=== PATIENT | male | born 1945 | race Caucasian/White ===

== ENCOUNTER → 2018-05-26 | Outpatient (CLI) | payer MEDICARE, BC, OTHER ==
--- NOTE | 2018-05-26 15:25 | XR ---
EXAM TYPE: LUMBAR SPINE X RAY SERIES COMPARISON: NONE HISTORY: Lower back pain TECHNIQUE: 3 views are submitted. FINDINGS: Alignment is anatomic. The pedicles are intact. The transverse processes are intact. There is no s pondylolysis or spondylolisthesis. Surgical clips in the right upper quadrant. Multilevel hypertroph ic and degenerative disc disease with facet arthropathy. Atherosclerotic change of the vasculature. IMPRESSION: 1. Multilevel degenerative disc disease and facet arthropathy consider MRI follow-up. Multilevel fora luther encroachment suspected.
== END | disposition home or self-care (01) ==
LOC: RADXRMAIN 14:32
PROVIDERS: ATTEND Nurse Practitioner Adult Health
DX: M51.36 Other intervertebral disc degeneration, lumbar region (principal); M46.96 Unspecified inflammatory spondylopathy, lumbar region
CPT/HCPCS: 72100

== ENCOUNTER → 2018-06-21 | Outpatient (CLI) | payer MEDICARE, BC, OTHER ==
--- NOTE | 2018-06-23 08:00 | MR ---
EXAMINATION TYPE: MR lumbar spine wo con DATE OF EXAM: 06/21/2018 COMPARISON: HISTORY: LBP, radiates down both legs to feet TECHNIQUE: Multiplanar, multisequence images of the lumbar spine were acquired. Lumbar vertebra have normal alignment. There is mild uniform narrowing of lumbar disc spaces. There i s small posterior disc bulging at all levels of the lumbar spine. There is developmentally small spin al canal. There is hypertrophic facet arthropathy. There is resultant moderately severe spinal stenos is at L4-5. There is mild lateral recess stenosis at L3-4 and L2-3. There is bilateral narrowing of t he neural foramina from L1 to L5 due to the disc space mild narrowing and facet arthropathy. There is no compression fracture. There is no lumbar paraspinal mass. I see no focal bone destruction. IMPRESSION: Multilevel spondylotic changes. Moderately severe L4-5 bony spinal stenosis. Mild relative stenosis s een at other levels as above. No fracture. Multilevel neural foraminal narrowing as above.
== END | disposition home or self-care (01) ==
LOC: RADMRIMAIN 17:48
PROVIDERS: ATTEND Nurse Practitioner Adult Health
DX: M99.73 Connective tissue and disc stenosis of intervertebral foramina of lumbar region (principal); M48.061 Spinal stenosis, lumbar region without neurogenic claudication; M47.816 Spondylosis without myelopathy or radiculopathy, lumbar region
CPT/HCPCS: 72148

== ENCOUNTER 2021-05-11 08:30 | Emergency (ER) | payer MEDICARE, BC, OTHER ==
[2021-05-11 08:37] VITALS: BP 195/74; PULSE 71; RESP 18; TEMP 98.4
[2021-05-11] MEDS ORDERED: MORPHINE SULFATE 4 MG/ML SYRINGE IM STA (09:07)
--- NOTE | 2021-05-11 09:12 | ED ---
ENT HPI - General Chief complaint: Dental/Oral Stated complaint: Tooth pain Time Seen by Provider: 05/11/21 08:40 Source: patient, RN notes reviewed Mode of arrival: ambulatory Limitations: no limitations - History of Present Illness Initial comments: Patient is a healthy 76-year-old male presenting to the emergency Department with complaints of right lower dental pain. Patient states he had a bad tooth, had the tooth removed by his dentist on Wednesday, 5 days ago. Over the past couple of days his pain has been increasing. He has only been taking Tylenol, he finally called his dentist and received a prescription for Georgetown. He took 2 doses yesterday, it did not seem to touch the pain. He denies any fevers or chills, no facial swelling, no nausea or vomiting. He was told to call his dentist first thing Wednesday morning for another appointment. Patient has no further complaints today. - Related Data Allergies Allergy/AdvReac Type Severity Reaction Status Date / Time No Known Allergies Allergy Verified 05/11/21 08:37 Review of Systems ROS Statement: Those systems with pertinent positive or pertinent negative responses have been documented in the HPI. ROS Other: All systems not noted in ROS Statement are negative. Past Medical History Past Medical History: Diabetes Mellitus, GERD/Reflux, Hyperlipidemia, Hypertension, Sleep Apnea/CPAP/BIPAP Additional Past Medical History / Comment(s): low back pain, leg cramps/restless legs/ carpal tunnel History of Any Multi-Drug Resistant Organisms: None Reported Past Surgical History: Tonsillectomy Past Anesthesia/Blood Transfusion Reactions: No Reported Reaction Past Psychological History: No Psychological Hx Reported Smoking Status: Never smoker Past Alcohol Use History: Occasional Past Drug Use History: None Reported General Exam - General Exam Comments Initial Comments: GENERAL: Patient is well-developed and well-nourished. Patient is nontoxic and in no acute distress. HEAD: Atraumatic, normocephalic. EYES: Pupils equal round and reactive to light, extraocular movements intact, sclera anicteric, conjunctiva are normal. Eyelids were unremarkable. ENT: TMs normal, nares patent, oropharynx clear without exudates. Moist mucous membranes. Tooth #32 was removed, mild erythema, appears to be dry socket. It is no facial swelling. NECK: Normal range of motion, supple without lymphadenopathy or JVD. LUNGS: Unlabored respirations. Breath sounds clear to auscultation bilaterally and equal. No wheezes rales or rhonchi. HEART: Regular rate and rhythm without murmurs, rubs or gallops. NEUROLOGICAL: Patient is alert and oriented x 3. SKIN: Warm, Dry, normal turgor, no rashes or lesions noted. Limitations: no limitations Course Vital Signs 05/11/21 08:35 Temperature 98.4 F Pulse Rate 71 Respiratory 18 Rate Blood Pressure 195/74 O2 Sat by Pulse 98 Oximetry Medical Decision Making - Medical Decision Making Patient is a 76-year-old male presenting with right lower tooth pain for the past 5 days. He had tooth removed by his dentist, had worsening pain over the past couple days, he did call his dentist, prescribed Georgetown yesterday. Patient had trouble sleeping last night secondary to pain. Exam reveals most likely dry socket. I will give him a dose of morphine here in the ER. The recommended anti-inflammatories along with his Georgetown's, can alternate between the 2. I recommended heat or ice packs to the outside of the jaw. He can follow up with his dentist tomorrow. He is agreeable to this plan of care and he is stable for discharge. Disposition Clinical Impression: Dry tooth socket, Toothache Disposition: HOME SELF-CARE Condition: Stable Instructions (If sedation given, give patient instructions): Toothache (ED) Additional Instructions: Please return to the Emergency Department if symptoms worsen or any other concerns. Recommend continuing with Georgetown, alternate between ibuprofen or Aleve. Trial of heat and/or ice to the outside of the jaw as well. Topical Orajel may also help. Follow-up with your dentist tomorrow. Is patient prescribed a controlled substance at d/c from ED?: No Referrals: Zuleika Schulte, AARON [Primary Care Provider] - 1-2 days Time of Disposition: 09:12
== END 2021-05-11 09:25 | disposition home or self-care (01) ==
LOC: EC 08:30
DX: M27.3 Alveolitis of jaws (principal); E11.9 Type 2 diabetes mellitus without complications; E78.5 Hyperlipidemia, unspecified; G25.81 Restless legs syndrome; G47.30 Sleep apnea, unspecified; I10 Essential (primary) hypertension; K21.9 Gastro-esophageal reflux disease without esophagitis
CPT/HCPCS: 99282; 96372; J2270

== ENCOUNTER → 2022-01-13 | Outpatient (CLI) | payer MEDICARE, BC, OTHER ==
--- NOTE | 2022-01-13 09:56 | XR ---
Limited right knee HISTORY: Right knee pain 2 views the right knee There is spurring and joint space loss at the patellofemoral joint with some increased suprapatellar density suggests joint effusion, joint space loss is also present within the medial compartment, vasc ular calcifications are identified incidentally. Bone mineralization and alignment are maintained. 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 Limited right knee.
== END | disposition home or self-care (01) ==
LOC: RADXRYALE 08:53
PROVIDERS: ATTEND Internal Medicine
DX: M25.561 Pain in right knee (principal); M25.461 Effusion, right knee

== ENCOUNTER → 2022-02-03 | Outpatient (CLI) | payer MEDICARE, BC, OTHER ==
[2022-02-03 18:44] LABS: Anion Gap 13.9 mmol/L (10.00-18.00); Carbon Dioxide 28.9 mmol/L (20.0-27.5); Potassium 4.3 mmol/L (3.5-5.5)
[2022-02-03 18:49] LABS: Basophils # (A) 0.05 X 10*3/uL (0.00-0.10); Basophils % (A) 1.1 %; Eosinophils # (A) 0.17 X 10*3/uL (0.04-0.35); Eosinophils % (A) 3.9 %; HCT 43.2 % (39.6-50.0); HGB 14.4 g/dL (13.0-17.0); Immature Grans, Automated 0.2 %; Lymphocytes # (A) 1.58 X 10*3/uL (0.90-5.00); Lymphocytes % (A) 35.8 %; MCH 30.2 pg (27.0-32.0); MCHC 33.3 g/dL (32.0-37.0); MCV 90.6 fL (80.0-97.0); Mean Platelet Volume 11.8 fL (9.5-12.2); Monocytes # (A) 0.36 X 10*3/uL (0.20-1.00); Monocytes % (A) 8.2 %; NRBC Per 100 WBC 0 /100 WBCS (0.0-0.0); Neutrophils # (A) 2.24 X 10*3/uL (1.80-7.70); Neutrophils % (A) 50.8 %; Platelet Count 147 X 10*3/uL (140-440); RBC 4.77 X 10*6/uL (4.40-5.60); RDW 13.6 % (11.5-14.5); WBC 4.41 X 10*3/uL (4.50-10.00)
== END | disposition home or self-care (01) ==
LOC: LABPAT 10:37
PROVIDERS: ATTEND Orthopaedic Surgery
DX: Z01.812 Encounter for preprocedural laboratory examination (principal); M23.91 Unspecified internal derangement of right knee
CPT/HCPCS: 80051; 85025; 93005

== ENCOUNTER 2022-03-25 10:16 | Day surgery (SDC) | payer MEDICARE, BC, OTHER ==
--- NOTE | 2022-03-25 01:53 | HP ---
HISTORY AND PHYSICAL DATE OF SURGERY: 03/25/2022 HISTORY OF PRESENT ILLNESS: Humphrey Sanchez is a 76-year-old patient seen with progressive right knee pain. We discussed options for treatment. The patient has elected to proceed with right knee arthroscopy. Consent regarding the procedure was obtained. Cardiac clearance was provided by Dr. Saez. PAST MEDICAL HISTORY: Hypertension, insulin-dependent diabetes, and hyperlipidemia. SURGICAL HISTORY: Carpal tunnel surgery and cholecystectomy. DAILY MEDICATIONS: Glipizide, losartan, metformin, metoprolol, NovoLog insulin, and omeprazole. ALLERGIES: None. SOCIAL HISTORY: He denies current tobacco use. PHYSICAL EVALUATION OF RIGHT KNEE: Range of motion is -2 to 100. Mild effusion. Tenderness to medial joint line. Positive medial Khang's. Ligaments stable. Hip rotation without pain. Distal neurovascular exam intact. RADIOGRAPHS: Radiographs of the right knee revealed moderate osteoarthritic changes. IMPRESSION: 1. Internal derangement of right knee with medial meniscal tear. 2. Hypertension. 3. Hyperlipidemia. 4. Insulin-dependent diabetes. PLAN: Right knee arthroscopy with partial medial meniscectomy and debridement. MMODL / IJN: [id number] /
[~2022-03-25 10:16] MED LIST: LACTATED RINGERS 1,000 ML IV SCH; LIDOCAINE 1% (10MG/ML) FOR IV START INTRADERMA PRN; ONDANSETRON 4 MG/2 ML VIAL IVP ONE
[2022-03-25 11:10] LABS: Glucose,Whole Blood 218 mg/dL (70-110)
[2022-03-25] MEDS ORDERED: INSULIN ASPART (NovoLOG) 100 UNIT/ML VIAL SQ ONE (11:17)
[2022-03-25] MEDS ORDERED: PROPOFOL 10 MG/ML 20 ML VIAL IV ONE (12:07)
[2022-03-25] MEDS ORDERED: fentaNYL (PF) 50 MCG/ML 2 ML AMP ONE (12:07)
[2022-03-25] MEDS ORDERED: SUCCINYLCHOLINE CHLORIDE 200 MG/10 ML VIAL IV ONE (12:07)
[2022-03-25] MEDS ORDERED: BUPIVACAIN-EPI 0.25%-1:200,000 30 ML VIAL INTRAARTIC ONE (12:14)
--- NOTE | 2022-03-25 13:04 | P.OP ---
Date of Procedure: 03/25/22 Preoperative Diagnosis: Internal derangement right knee Postoperative Diagnosis: 1. Tear medial and lateral meniscus right knee 2. Reactive synovitis medial, lateral and suprapatellar compartments right knee Procedure(s) Performed: 1. Arthroscopic partial medial and lateral meniscectomy right knee 2. Arthroscopic partial synovectomy medial, lateral and suprapatellar compartments right knee Anesthesia: GETA, local Surgeon: Desmond Alfaro Estimated Blood Loss (ml): 6 Pathology: none sent Condition: stable Disposition: PACU Indications for Procedure: 76-year-old patient seen with progressive right knee pain. After treatment options were discussed, he elected to proceed with arthroscopy. Operative Findings: See description of procedure Description of Procedure: Patient was taken to the operative suite. Patient underwent a general anesthetic by the department of anesthesia. Patient was given preoperative antibiotics. The right lower extremity was placed in a well-padded arthroscopic leg arce. The right leg was prepped and draped in the normal sterile orthopedic fashion. A lateral parapatellar and suprapatellar incision was made. Trochars were inserted. Arthroscopy was initiated. Suprapatellar pouch revealed diffuse thick reactive synovitis. The patellofemoral joint appeared to articulate congruently. There was grade 1 chondromalacia of the patellofemoral joint without significant tearing noted. The scope was guided into the medial gutter. No loose body or plica were identified. The scope was then guided into the medial compartment. A medial parapatellar incision was made. Trocar inserted followed by probe. There was a complex tear involving the posterior horn and midbody medial meniscus. There were grade 2/3 chondromalacia changes of the medial femoral condyle and tibial plateau without significant osteochondral tears being present. There was some thick reactive synovitis anteriorly. I performed a partial medial meniscectomy getting down to stable meniscal tissue. I performed a partial synovectomy decompressing the thick reactive synovitis. The residual meniscus was stable. There was good decompression of the synovitis. Scope and probe were then guided into the intercondylar notch. Cruciates were identified, probed and found to be stable. The scope and probe were then guided into lateral compartment. There was a radial tear mid body lateral meniscus. There were grade 1/2 chondromalacia changes of lateral compartment. There was thick reactive synovitis anteriorly. I performed a partial lateral meniscectomy getting down to stable meniscal tissue. I performed a partial synovectomy decompressing the reactive synovitis. The residual meniscus was stable. There was good decompression of the synovitis. The scope was in guided back into the suprapatellar compartment. I introduced a motorized shaver into the super patellar compartment. I debrided some piecemeal fragments of meniscus that I encountered. I performed a partial synovectomy. The shaver was removed. There was good decompression of synovitis. I took one more look around the entire knee, no residual debris. Instruments were now removed from the joint. The joint was infiltrated with .25% Marcaine. Steri-Strips were applied to the portal sites. Sterile dressings were applied. The patient was placed into a TRAE hose. No tourniquet was utilized. The patient was awakened, transferred to a bed and taken to recovery stable satisfactory condition.
[2022-03-25 13:09] VITALS: TEMP 96.9
[2022-03-25] MEDS: HYDROmorphone 0.5 MG/0.5 ML SYRINGE IVP PRN ×3 (13:16→13:44)
[2022-03-25 13:58] VITALS: RESP 16
[2022-03-25 14:41] VITALS: BP 148/81; PULSE 73
[2022-03-25] MEDS ORDERED: ONDANSETRON ODT 4 MG TAB PO ONE (14:55)
== END 2022-03-25 15:08 | disposition home or self-care (01) ==
LOC: OR 10:16
PROVIDERS: ATTEND Orthopaedic Surgery
DX: M23.303 Other meniscus derangements, unspecified medial meniscus, right knee (principal); M23.300 Other meniscus derangements, unspecified lateral meniscus, right knee; M65.861 Other synovitis and tenosynovitis, right lower leg; I10 Essential (primary) hypertension; E78.5 Hyperlipidemia, unspecified; E11.8 Type 2 diabetes mellitus with unspecified complications; G47.33 Obstructive sleep apnea (adult) (pediatric); K21.9 Gastro-esophageal reflux disease without esophagitis; F17.200 Nicotine dependence, unspecified, uncomplicated; M17.11 Unilateral primary osteoarthritis, right knee; G62.9 Polyneuropathy, unspecified; Z98.2 Presence of cerebrospinal fluid drainage device; Z90.89 Acquired absence of other organs; Z87.39 Personal history of other diseases of the musculoskeletal system and connective tissue; Z90.49 Acquired absence of other specified parts of digestive tract
CPT/HCPCS: 29880; J0330; J0690; J2405; J3010; J2704; J1170

== ENCOUNTER → 2022-06-02 | Outpatient (CLI) | payer MEDICARE, BC, OTHER ==
[2022-06-02 14:32] LABS: HCT 43.2 % (39.6-50.0); HGB 14.6 g/dL (13.0-17.0); MCH 30.1 pg (27.0-32.0); MCHC 33.8 g/dL (32.0-37.0); MCV 89.1 fL (80.0-97.0); Mean Platelet Volume 11.2 fL (9.5-12.2); NRBC Per 100 WBC 0 /100 WBCS (0.0-0.0); Platelet Count 153 X 10*3/uL (140-440); RBC 4.85 X 10*6/uL (4.40-5.60); RDW 13.1 % (11.5-14.5); WBC 4.22 X 10*3/uL (4.50-10.00)
[2022-06-02 14:35] LABS: African American GFR (CKD) 63.8 (60.0-200.0); Anion Gap 12.5 mmol/L (10.00-18.00); Blood Urea Nitrogen 23.2 mg/dL (9.0-27.0); Carbon Dioxide 25.1 mmol/L (20.0-27.5); Potassium 4.7 mmol/L (3.5-5.5)
== END | disposition home or self-care (01) ==
LOC: LABPAT 09:54
PROVIDERS: ATTEND Internal Medicine Cardiovascular Disease
DX: Z01.812 Encounter for preprocedural laboratory examination (principal); I25.5 Ischemic cardiomyopathy
CPT/HCPCS: 36415; 80051; 82565; 84520; 85027

== ENCOUNTER 2022-06-09 06:06 | Day surgery (SDC) | payer MEDICARE, BC, OTHER ==
[2022-06-04 16:28] VITALS: BMI 36.5
[~2022-06-09 06:06] MED LIST changes: +ALPRAZolam 0.25 MG TAB PO PRN; +ALPRAZolam 0.5 MG TAB PO PRN; +ASPIRIN 325 MG TAB PO STA; +ATORVASTATIN 80 MG TAB PO STA; +HEPARIN SODIUM,PORCINE 10,000 UNIT in SODIUM CHLORIDE 0.9% 1,000 ML IRRIGATION PRN; +HEPARIN SODIUM,PORCINE 2,500 UNIT in SODIUM CHLORIDE 0.9% 250 ML IRRIGATION PRN; -LACTATED RINGERS 1,000 ML IV SCH; -LIDOCAINE 1% (10MG/ML) FOR IV START INTRADERMA PRN; +NITROGLYCERIN SL TABS 0.4 MG TAB SUBLINGUAL PRN; -ONDANSETRON 4 MG/2 ML VIAL IVP ONE; +SODIUM CHLORIDE 0.9% 1,000 ML in EMPTY BAG 1 BAG IV ONE
[2022-06-09] MEDS ORDERED: ASPIRIN 81 MG ONE (06:28)
[2022-06-09 06:52] LABS: Glucose,Whole Blood 210 mg/dL (70-110)
[2022-06-09 06:55] VITALS: RESP 16; TEMP 97.7
[2022-06-09] MEDS ORDERED: SODIUM CHLORIDE 0.9% 1,000 ML IV ONE (06:55)
[2022-06-09] MEDS ORDERED: INSULIN ASPART (NovoLOG) 100 UNIT/ML VIAL SQ ONE (07:15)
[2022-06-09] MEDS: MIDAZOLAM 2 MG/2 ML VIAL IV ONE ×2 (07:47→08:37)
[2022-06-09] MEDS ORDERED: fentaNYL (PF) 50 MCG/ML 2 ML AMP IV ONE (07:47)
[2022-06-09] MEDS ORDERED: LIDOCAINE 1% INJ 10MG/ML (30 ML VIAL-PF) SQ ONE (07:49)
[2022-06-09] MEDS ORDERED: VERAPAMIL SYRINGE (5 MG/10 ML) INTRAARTER ONE (07:54)
[2022-06-09] MEDS: HEPARIN SODIUM 1,000 UN/ML (10ML VL) IV ONE ×2 (07:59→08:25)
[2022-06-09] MEDS ORDERED: CLOPIDOGREL 75 MG TAB PO ONE (08:27)
[2022-06-09] MEDS ORDERED: IOPAMIDOL-370 125ML BTL INJ ONE (08:37)
[2022-06-09] MEDS ORDERED: IOPAMIDOL-370 100ML BTL INJ ONE (08:44)
[2022-06-09] MEDS ORDERED: HYDROcodone/APAP 5-325MG 1 EACH TAB PO PRN (08:47)
[2022-06-09] MEDS ORDERED: ATROPINE SULFATE 0.1 MG/ML 10ML SYRINGE IV PRN (08:48)
[2022-06-09] MEDS ORDERED: MAG HYDROX/AL HYDROX/SIMETH 30 ML CUP PO PRN (08:48)
[2022-06-09] MEDS ORDERED: RX INFO: IV CONTRAST WAS GIVEN 1 EACH MISC MISCELLANE PRN (08:48)
[2022-06-09] MEDS ORDERED: NITROGLYCERIN SL TABS 0.4 MG TAB SUBLINGUAL PRN (08:48)
[2022-06-09] MEDS ORDERED: ZOLPIDEM 5 MG TAB PO PRN (08:48)
--- NOTE | 2022-06-09 08:48 | CC ---
CARDIAC CATHETERIZATION REPORT INDICATIONS: The patient with multiple coronary risk factors, including hypertension, dyslipidemia, and diabetes, who underwent a stress test that revealed cardiomyopathy with an ejection fraction of 45% with a fixed inferior wall defect. Due to this, the patient was advised to undergo cardiac catheterization to rule out significant obstructive CAD. He had been explained of risks, benefits, and alternatives, understood and accepted. PROCEDURE NOTE: After obtaining informed consent, left heart catheterization and coronary angiogram were performed via the right radial artery using a Jaimie catheter to engage the right coronary artery, a 3.5 left Guillermo catheter. The left ventricular hemodynamics were obtained with a size 4 right Guillermo. The patient tolerated the procedure well without any obvious immediate complications. Total sedation time was 20 minutes. The patient received a milligram of Versed and 50 mcg of fentanyl. Right radial artery access was obtained using a modified Seldinger technique. A 6- Maltese sheath was placed, and using a Glidewire, a catheter and wire were manipulated into the ascending aorta under fluoroscopic guidance where the catheters were exchanged. The patient received 5 mg of verapamil and 5500 units of heparin per protocol. FINDINGS: 1. Hemodynamics: Left ventricular end-diastolic pressure is 20 mm. There is no significant gradient across the aortic valve. 2. Left ventriculogram: Left ventriculogram is not performed. 3. Angiographic data: a.Right coronary artery appears calcified. There is a large dominant vessel that shows a focal 80% stenosis in the proximal portion, and a 30% to 40% stenosis more distally. Left main coronary artery appears calcified, but it is free of significant stenosis. It divides into left anterior descending coronary artery and circumflex coronary artery. Circumflex coronary artery is a nondominant vessel and is free of stenosis. The LAD appears heavily calcified with moderate diffuse disease in the midportion, diagonal branch shows a 60% to 70% stenosis. 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 PLAN: Given the perfusion defect noted in the inferior wall and the cardiomyopathy, the patient will undergo angioplasty of the right coronary artery. The patient's angiogram was reviewed by Dr. Madrigal, the on-call sorter upholstery parts, who will perform the angioplasty. MMODL / IJN: [id number] /
--- NOTE | 2022-06-09 08:54 | P.PCN ---
Date of Procedure: 06/09/22 Operative Findings: PERCUTANEOUS CORONARY INTERVENTION Performing physician Pb Madrigal M.D. Procedure Performed: 1. Successful stenting of the mid RCA using 5.0 x 15 mm Xience drug-eluting stent with an excellent angiographic results. Indication: This is a 77-year-old gentleman who sees Dr. Saez regularly was diagnosed recently with cardiomyopathy. Heart catheterization to rule out severe u nderlying coronary artery disease. The patient underwent heart catheterization earlier today by Dr. 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 The decision was made toward percutaneous coronary intervention Approach: Right radial artery Complications: None Level of Sedation: Moderate with a sedation length of 22 minutes Procedure Discussion: Please refer to be diagnostic heart catheterization was performed earlier by Dr. Saez. Anticoagulation was initiated using heparin with continuous ACT monitoring. Subsequently I did engage the RCA using an a.l. 0.75 guiding catheter. After that I did wire the RCA using a run-through wire. Balloon angioplasty was performed using 3.5 x 12 mm balloon before I deployed 5.0 x 15 mm stent with adjunctive use of guide liner. The stent was positioned under fluoroscopy guidance and deployed under 14 gamaliel for 20 seconds. The following angiogram showed good angiographic results and the procedure was completed without any complications Postprocedure Management: 1. dual antiplatelet therapy using aspirin and Plavix for at least 6 months 2. aggressive cholesterol control 3. risk factors modification
[2022-06-09] MEDS ORDERED: ASPIRIN 81 MG PO SCH (09:00)
[2022-06-09] MEDS ORDERED: PANTOPRAZOLE 40 MG TABLET PO SCH (09:00)
[2022-06-09] MEDS ORDERED: FENOFIBRATE 160 MG TAB PO SCH (09:00)
[2022-06-09] MEDS ORDERED: CHOLECALCIFEROL 25 MCG (1000 IU) TABLET PO SCH (09:00)
[2022-06-09] MEDS ORDERED: FLUTICASONE 50MCG/SPRAY NASAL 16GM EA NOSTRIL SCH ×2 (09:00→21:00)
[2022-06-09] MEDS ORDERED: FUROSEMIDE 40 MG TAB PO SCH (09:00)
[2022-06-09] MEDS ORDERED: LOSARTAN-HCTZ 50-12.5 MG 1 EACH TAB PO SCH (09:00)
[2022-06-09] MEDS ORDERED: SODIUM CHLORIDE 0.9% 1,000 ML in EMPTY BAG 1 BAG IV SCH (09:00)
[2022-06-09 12:54] LABS: Glucose,Whole Blood 237 mg/dL (70-110)
[2022-06-09 17:33] VITALS: BP 142/66; PULSE 56
[2022-06-09] MEDS ORDERED: MONTELUKAST 10 MG TAB PO SCH (21:00)
[2022-06-09] MEDS ORDERED: PRAMIPEXOLE 0.5 MG TAB PO SCH (21:00)
[2022-06-09] MEDS ORDERED: ATORVASTATIN 40 MG TAB PO SCH (21:00)
[2022-06-09] MEDS ORDERED: GABAPENTIN 300 MG CAP PO SCH (21:00)
[2022-06-09] MEDS ORDERED: INSULIN DETEMIR (LEVEMIR) 100 UNIT/ML SYR SQ SCH (21:00)
[2022-06-10] MEDS ORDERED: CLOPIDOGREL 75 MG TAB PO SCH (09:00)
== END 2022-06-09 13:11 | disposition home or self-care (01) ==
LOC: CATHCVL 06:06 → 6NMEDSUR 08:43 → CATHCVL 13:11
PROVIDERS: ATTEND Internal Medicine Cardiovascular Disease
DX: I25.5 Ischemic cardiomyopathy (principal); I42.9 Cardiomyopathy, unspecified; I10 Essential (primary) hypertension; E78.5 Hyperlipidemia, unspecified; E11.9 Type 2 diabetes mellitus without complications; Z79.84 Long term (current) use of oral hypoglycemic drugs; Z87.891 Personal history of nicotine dependence; Z81.8 Family history of other mental and behavioral disorders
CPT/HCPCS: 93458; C9600; C1769 ×4; C1887 ×2; C1894; C1725; C1874; J2250; J2001; J3010; J1644; Q9967 ×2

== ENCOUNTER 2022-10-15 13:00 | Observation (INO) | payer MEDICARE, BC, OTHER ==
[2022-10-15] MEDS ORDERED: NITROGLYCERIN OINT 1 INCH/GM PACKET TOPICAL STA (13:14)
[2022-10-15] MEDS ORDERED: ASPIRIN 81 MG PO STA (13:14)
--- NOTE | 2022-10-15 13:17 | ED ---
General Adult HPI - General Chief complaint: Chest Pain Stated complaint: Chest Pain Time Seen by Provider: 10/15/22 13:06 Source: patient, EMS, RN notes reviewed Mode of arrival: EMS Limitations: no limitations - History of Present Illness Initial comments: Patient is a pleasant 77 year old male presenting to the emergency department with concerns with chest discomfort. Onset of symptoms was around 12 hours ago. Symptoms have been intermittent. No discomfort at this time. Patient describes discomfort as somewhat pressure with occasional electrical shock type feeling. Patient may have some mild associated dyspnea. No nausea or diaphoresis. No history of similar symptoms previously. No leg pain or leg swelling. - Related Data Home Medications Medication Instructions Recorded Confirmed Atorvastatin [Lipitor] 40 mg PO HS 02/05/22 10/15/22 Cholecalciferol [Vitamin D3 (25 25 mcg PO DAILY 02/05/22 10/15/22 Mcg = 1000 Iu)] Fenofibrate [Lofibra] 160 mg PO DAILY 02/05/22 10/15/22 Fluticasone Nasal [place] [Flonase 1 spray EA NOSTRIL DAILY 02/05/22 10/15/22 Nasal [place]] Furosemide [Lasix] 40 mg PO DAILY 02/05/22 10/15/22 Insulin Aspart [NovoLOG Flexpen] See Protocol SQ AC-TID MDD 42 units 02/05/22 10/15/22 Insulin Detemir [Levemir Flextouch 42 units SQ HS 02/05/22 10/15/22 Pen] Losartan/Hydrochlorothiazide 1 tab PO DAILY 02/05/22 10/15/22 [Losartan-Hctz 100-25 mg Tab] Metoprolol Tartrate [Lopressor] 25 mg PO BID 02/05/22 10/15/22 Montelukast Sodium [Singulair] 10 mg PO HS 02/05/22 10/15/22 Naproxen [Naprosyn] 500 mg PO Q12H PRN 02/05/22 10/15/22 Omeprazole [PriLOSEC] 40 mg PO DAILY 02/05/22 10/15/22 Pramipexole [Mirapex] 0.5 mg PO HS 02/05/22 10/15/22 Clopidogrel [Plavix] 75 mg PO DAILY 06/09/22 10/15/22 Aspirin EC [Ecotrin Low Dose] 81 mg PO DAILY 10/15/22 10/15/22 Empagliflozin [Jardiance] 25 mg PO DAILY 10/15/22 10/15/22 Meloxicam [Mobic] 15 mg PO DAILY 10/15/22 10/15/22 Semaglutide [Ozempic] 0.5 mg SQ TH 10/15/22 10/15/22 Allergies Allergy/AdvReac Type Severity Reaction Status Date / Time No Known Allergies Allergy Verified 10/15/22 14:00 Review of Systems ROS Statement: Those systems with pertinent positive or pertinent negative responses have been documented in the HPI. ROS Other: All systems not noted in ROS Statement are negative. Constitutional: Denies: fever Eyes: Denies: eye pain ENT: Denies: ear pain Respiratory: Reports: as per HPI. Denies: cough Cardiovascular: Reports: as per HPI, chest pain Endocrine: Denies: fatigue Gastrointestinal: Denies: abdominal pain Genitourinary: Denies: urgency Musculoskeletal: Denies: back pain Past Medical History Past Medical History: Diabetes Mellitus, GERD/Reflux, Hyperlipidemia, Hypertension, Osteoarthritis (OA), Sleep Apnea/CPAP/BIPAP Additional Past Medical History / Comment(s): leg cramps/restless legs, neuropathy, frequent swelling lower legs-wears compression stockings frequently, supposed to use CPAP History of Any Multi-Drug Resistant Organisms: None Reported Past Surgical History: Cholecystectomy, Orthopedic Surgery, Tonsillectomy Additional Past Surgical History / Comment(s): pain procedures, BILATERAL CARPAL TUNNEL RELEASE Past Anesthesia/Blood Transfusion Reactions: No Reported Reaction Additional Past Anesthesia/Blood Transfusion Reaction / Comment(s): occasionally slow to wake up Past Psychological History: No Psychological Hx Reported Smoking Status: Former smoker Past Alcohol Use History: Rare Past Drug Use History: None Reported - Past Family History Father Additional Family Medical History / Comment(s): MVA Mother Family Medical History: No Reported History General Exam Limitations: no limitations General appearance: alert, in no apparent distress Head exam: Present: normocephalic Eye exam: Present: normal appearance Neck exam: Present: normal inspection Respiratory exam: Present: normal lung sounds bilaterally. Absent: chest wall tenderness Cardiovascular Exam: Present: regular rate, normal rhythm Expanded Peripheral pulses: 2+: Radial (R), Radial (L), Posterior Tibialis (R), Posterior Tibialis (L), Dorsalis Pedis (R), Dorsalis Pedis (L) GI/Abdominal exam: Present: soft. Absent: tenderness Extremities exam: Present: normal inspection. Absent: pedal edema, calf tenderness Neurological exam: Present: alert Psychiatric exam: Present: normal affect, normal mood Skin exam: Present: normal color Course Vital Signs 10/15/22 10/15/22 10/15/22 13:09 13:24 14:12 Temperature 98.1 F Pulse Rate 91 74 Pulse Rate [ 85 Data Warehouse Analyst ] Respiratory 16 17 Rate Blood Pressure 162/96 139/79 O2 Sat by Pulse 98 96 Oximetry 10/15/22 15:08 Temperature Pulse Rate 67 Pulse Rate [ Data Warehouse Analyst ] Respiratory 16 Rate Blood Pressure 131/77 O2 Sat by Pulse 96 Oximetry EKG Findings - EKG Results: EKG: interpreted by KARIND (Left axis. For screening AV block CT 240. QRS 152. QT 439. QTC 46. Septal Q waves. Left bundle branch block.), sinus rhythm, normal ST/T Medical Decision Making - Medical Decision Making Was pt. sent in by a medical professional or institution ([facility] Ng, [facility], urgent care, hospital, or [facility]...) When possible be specific @ -Patient was sent from urgent care Did you speak to anyone other than the patient for history (EMS, parent, family, police, friend...)? What history was obtained from this source @ -No Did you review nursing and triage notes (agree or disagree)? Why? @ -I reviewed and agree with nursing and triage notes Were old charts reviewed (outside hosp., previous admission, EMS record, old EKG, old radiological studies, urgent care reports/EKG's, [facility] records)? Report findings @ -No old charts were reviewed Differential Diagnosis (chest pain, altered mental status, abdominal pain women, abdominal pain men, vaginal bleeding, weakness, fever, dyspnea, syncope, headache, dizziness, GI bleed, back pain, seizure, CVA, palpatations, mental health)? @ -Differential Chest Pain: Stable Angina, Unstable Angina, STEMI, NSTEMI Aortic Dissection, Pneumothorax, Musculoskeletal, Esophageal Spasm GERD, Cholecystitis, Pancreatitis, Zoster, this is not meant to be an all-inclusive list. e EKG interpreted by me (3pts min.). @ -As above X-rays interpreted by me (1pt min.). @ -Chest x-ray shows no acute process CT interpreted by me (1pt min.). @ -None done U/S interpreted by me (1pt. min.). @ -None done What testing was considered but not performed or refused? (CT, X-rays, U/S, labs)? Why? @ -None What meds were considered but not given or refused? Why? @ -None Did you discuss the management of the patient with other professionals (professionals i.e. DrClovis, PA, LAUNCHMAN, lab, RT, psych nurse, social studies department chair, physical ther, teacher, district fire management officer, patient case coordinator)? Give summary @ -Case was discussed with Dr. Zepeda, who will admit covering hospital call. Was smoking cessation discussed for >3mins.? @ -No Was critical care preformed (if so, how long)? @ -No Were there social determinants of health that impacted care today? How? (Homelessness, low income, unemployed, alcoholism, drug addiction, transport ation, low edu. Level, literacy, decrease access to med. care, shelter, rehab)? @ -No Was there de-escalation of care discussed even if they declined (Discuss DNR or withdrawal of care, Hospice)? DNR status @ -No What co-morbidities impacted this encounter? (DM, HTN, Smoking, COPD, CAD, Cancer, CVA, ARF, Chemo, Hep., AIDS, mental health diagnosis, sleep apnea, morbid obesity)? @ -None Was patient admitted / discharged? Hospital course, mention meds given and route, prescriptions, significant lab abnormalities, going to OR and other pertinent info. @ -Patient reevaluated and to free at this time. Patient and family are updated on results and plan. Patient will be admitted for cardiac consultation and repeat testing and evaluation Undiagnosed new problem with uncertain prognosis? @ -No Drug Therapy requiring intensive monitoring for toxicity (Heparin, Nitro, Insulin, Cardizem)? @ -No Were any procedures done? @ -No Diagnosis/symptom? @ -Chest pain Acute, or Chronic, or Acute on Chronic? @ -Acute Uncomplicated (without systemic symptoms) or Complicated (systemic symptoms)? @ -default Side effects of treatment? @ -No Exacerbation, Progression, or Severe Exacerbation? @ -No Poses a threat to life or bodily function? How? (Chest pain, [place], [place], pneumonia, PE, COPD, DKA, ARF, appy, cholecystitis, CVA, Diverticulitis, Homicidal, Lopez icidal, threat to staff... and all critical care pts) @ -No - Lab Data Result diagrams: 10/15/22 13:19 10/15/22 13:19 Lab Results 10/15/22 10/15/22 10/15/22 Range/Units 13:19 13:19 13:19 WBC 4.1 (3.8-10.6) k/uL RBC 5.30 (4.30-5.90) m/uL Hgb 16.2 (13.0-17.5) gm/dL Hct 46.8 (39.0-53.0) % MCV 88.3 (80.0-100.0) fL MCH 30.5 (25.0-35.0) pg MCHC 34.6 (31.0-37.0) g/dL RDW 13.7 (11.5-15.5) % Plt Count 130 L (150-450) k/uL MPV 8.3 Neutrophils % 55 % Lymphocytes % 35 % Monocytes % 5 % Eosinophils % 2 % Basophils % 1 % Neutrophils # 2.3 (1.3-7.7) k/uL Lymphocytes # 1.4 (1.0-4.8) k/uL Monocytes # 0.2 (0-1.0) k/uL Eosinophils # 0.1 (0-0.7) k/uL Basophils # 0.0 (0-0.2) k/uL PT 10.5 (9.0-12.0) sec INR 1.0 (<1.2) APTT 22.5 (22.0-30.0) sec D-Dimer 0.30 (<0.60) mg/L FEU Sodium 138 (137-145) mmol/L Potassium 4.3 (3.5-5.1) mmol/L Chloride 102 (98-107) mmol/L Carbon Dioxide 27 (22-30) mmol/L Anion Gap 9 mmol/L BUN 20 (9-20) mg/dL Creatinine 1.26 H (0.66-1.25) mg/dL Est GFR (CKD-EPI)AfAm 64 (>60 ml/min/1.73 sqM) Est GFR (CKD-EPI)NonAf 55 (>60 ml/min/1.73 sqM) Glucose 146 H (74-99) mg/dL Calcium 9.2 (8.4-10.2) mg/dL Magnesium 1.8 (1.6-2.3) mg/dL Total Bilirubin 0.5 (0.2-1.3) mg/dL AST 26 (17-59) U/L ALT 28 (4-49) U/L Alkaline Phosphatase 75 (38-126) U/L Troponin I (0.000-0.034) ng/mL NT-Pro-B Natriuret Pep pg/mL Total Protein 7.1 (6.3-8.2) g/dL Albumin 4.3 (3.5-5.0) g/dL Amylase 52 (30-110) U/L Lipase 100 (23-300) U/L 10/15/22 10/15/22 Range/Units 13:19 13:19 WBC (3.8-10.6) k/uL RBC (4.30-5.90) m/uL Hgb (13.0-17.5) gm/dL Hct (39.0-53.0) % MCV (80.0-100.0) fL MCH (25.0-35.0) pg MCHC (31.0-37.0) g/dL RDW (11.5-15.5) % Plt Count (150-450) k/uL MPV Neutrophils % % Lymphocytes % % Monocytes % % Eosinophils % % Basophils % % Neutrophils # (1.3-7.7) k/uL Lymphocytes # (1.0-4.8) k/uL Monocytes # (0-1.0) k/uL Eosinophils # (0-0.7) k/uL Basophils # (0-0.2) k/uL PT (9.0-12.0) sec INR (<1.2) APTT (22.0-30.0) sec D-Dimer (<0.60) mg/L FEU Sodium (137-145) mmol/L Potassium (3.5-5.1) mmol/L Chloride (98-107) mmol/L Carbon Dioxide (22-30) mmol/L Anion Gap mmol/L BUN (9-20) mg/dL Creatinine (0.66-1.25) mg/dL Est GFR (CKD-EPI)AfAm (>60 ml/min/1.73 sqM) Est GFR (CKD-EPI)NonAf (>60 ml/min/1.73 sqM) Glucose (74-99) mg/dL Calcium (8.4-10.2) mg/dL Magnesium (1.6-2.3) mg/dL Total Bilirubin (0.2-1.3) mg/dL AST (17-59) U/L ALT (4-49) U/L Alkaline Phosphatase (38-126) U/L Troponin I 0.032 (0.000-0.034) ng/mL NT-Pro-B Natriuret Pep 560 pg/mL Total Protein (6.3-8.2) g/dL Albumin (3.5-5.0) g/dL Amylase (30-110) U/L Lipase (23-300) U/L Disposition Clinical Impression: Chest pain Disposition: ADMITTED IP TO THIS [facility] Is patient prescribed a controlled substance at d/c from ED?: No Referrals: Nonstaff,Physician [REFERRING] - 1-2 days Time of Disposition: 15:13
--- NOTE | 2022-10-15 13:52 | XR ---
EXAMINATION TYPE: XR chest 2V DATE OF EXAM: 10/15/2022 COMPARISON: NONE HISTORY: Chest pressure and pain. TECHNIQUE: Frontal and lateral views of the chest are obtained. FINDINGS: There is no suspicious focal air space opacity, pleural effusion, or pneumothorax seen. T he cardiac silhouette size is within normal limits. Multilevel spurring in the spine is seen. Cholecy stectomy clips are present. Overlying EKG leads are noted. IMPRESSION: No acute process.
[2022-10-15 14:01] LABS: Partial Thromboplastin Time 22.5 sec (22.0-30.0); Prothrombin Time 10.5 sec (9.0-12.0)
[2022-10-15 14:05] LABS: Albumin 4.3 g/dL (3.5-5.0); Calcium 9.2 mg/dL (8.4-10.2); Magnesium 1.8 mg/dL (1.6-2.3); Potassium 4.3 mmol/L (3.5-5.1); Total Bilirubin 0.5 mg/dL (0.2-1.3); Total Protein 7.1 g/dL (6.3-8.2)
[2022-10-15 14:28] LABS: Basophils % (A) 1 %; Eosinophils # (A) 0.1 k/uL (0-0.7); Eosinophils % (A) 2 %; HCT 46.8 % (39.0-53.0); HGB 16.2 gm/dL (13.0-17.5); Lymphocytes # (A) 1.4 k/uL (1.0-4.8); Lymphocytes % (A) 35 %; MCH 30.5 pg (25.0-35.0); MCHC 34.6 g/dL (31.0-37.0); MCV 88.3 fL (80.0-100.0); Mean Platelet Volume 8.3; Monocytes # (A) 0.2 k/uL (0-1.0); Monocytes % (A) 5 %; Neutrophils # (A) 2.3 k/uL (1.3-7.7); Neutrophils % (A) 55 %; Platelet Count 130 k/uL (150-450); RDW 13.7 % (11.5-15.5); WBC 4.1 k/uL (3.8-10.6)
[2022-10-15] MEDS ORDERED: NITROGLYCERIN SL TABS 0.4 MG TAB SUBLINGUAL PRN (15:13)
[2022-10-15] MEDS ORDERED: NAPROXEN 250 MG TAB PO PRN (16:09)
[2022-10-15] MEDS ORDERED: DEXTROSE 50% SYRINGE 50 ML IVP PRN ×2 (16:10)
[2022-10-15] MEDS: INSULIN ASPART (NovoLOG) 100 UNIT/ML VIAL SQ SCH ×2 (16:42→20:40)
[2022-10-15 16:44] LABS: Glucose,Whole Blood 106 mg/dL (70-110)
[2022-10-15] MEDS: NITROGLYCERIN OINT 1 INCH/GM PACKET TOPICAL SCH ×2 (18:31→23:54)
[2022-10-15] MEDS: METOPROLOL TARTRATE 25 MG TAB PO SCH (20:18)
[2022-10-15 20:23] LABS: Glucose,Whole Blood 178 mg/dL (70-110)
[2022-10-15] MEDS ORDERED: MONTELUKAST 10 MG TAB PO SCH (21:00)
[2022-10-15] MEDS ORDERED: ATORVASTATIN 40 MG TAB PO SCH (21:00)
[2022-10-15] MEDS ORDERED: PRAMIPEXOLE 0.5 MG TAB PO SCH (21:00)
[2022-10-15] MEDS ORDERED: INSULIN DETEMIR (LEVEMIR) 100 UNIT/ML SYR SQ SCH (21:00)
--- NOTE | 2022-10-15 22:01 | HP ---
HISTORY AND PHYSICAL CHIEF COMPLAINT: Chest pain. HISTORY OF PRESENT ILLNESS: This is a 77-year-old gentleman with a past medical history of hypertension and diabetes, has multiple medical issues, being followed by Dr. House in the outpatient setting, was complaining of left-sided chest pain, which was rather ill-defined in character with some electric shock-like sensations at times according to him and the patient came to [facility] and admitted for further evaluation and treatment. Initial troponins are negative. There is no history of any fever, rigors, or chills at this time. PAST MEDICAL HISTORY: Reviewed include diabetes mellitus, hypertension, hyperlipidemia. The rest of the history and rest of the chart is also reviewed. HOME MEDICATIONS: Reviewed include Jardiance. Dose and rest of medications noted. ALLERGIES: None. FAMILY HISTORY: History of motor vehicle accident. SOCIAL HISTORY: Previous history of smoking. REVIEW OF SYSTEMS: A 14-point review is negative except as mentioned earlier. PHYSICAL EXAMINATION: VITAL SIGNS: Pulse 74, blood pressure 139/70, respirations 17. HEENT: Conjunctivae normal. NECK: No JVD. CARDIOVASCULAR: S1, S2. RESPIRATIONS: Breath sounds diminished at the bases. ABDOMEN: Soft, nontender. No mass palpable. LEGS: No edema. NERVOUS SYSTEM: No focal deficits. SKIN: No ulcer, rash, bleeding. JOINTS: No active deforming arthropathy. LABORATORY DATA: Reviewed. ASSESSMENT: 1. Chest pain, possible unstable angina. 2. Diabetes mellitus, type 2. 3. Hypertension. 4. Hyperlipidemia. 5. Multiple medical issues. RECOMMENDATIONS AND DISCUSSION: This is a 77-year-old gentleman with a past medical history of multiple complex medical issues, admitted with chest pain. We will rule out myocardial infarction. Unstable angina protocol. Cardiology consultation. Possible stress test. Resume the home medications once they are confirmed and continue to monitor. Further recommendations to follow. MMODL / IJN: [id number] /
[2022-10-16 06:14] LABS: Glucose,Whole Blood 112 mg/dL (70-110)
[2022-10-16] MEDS: INSULIN ASPART (NovoLOG) 100 UNIT/ML VIAL SQ SCH (06:36)
[2022-10-16 06:39] VITALS: RESP 18
[2022-10-16] MEDS: NITROGLYCERIN OINT 1 INCH/GM PACKET TOPICAL SCH ×2 (06:40→09:51)
[2022-10-16] MEDS ORDERED: PANTOPRAZOLE 40 MG TABLET PO SCH (07:30)
[2022-10-16 07:59] VITALS: BP 132/73; PULSE 69; TEMP 98.3
--- NOTE | 2022-10-16 07:59 | CONS ---
CONSULTATION HISTORY OF PRESENT ILLNESS: Humphrey Sanchez is a 77-year-old gentleman with a known history of type 2 diabetes, hypertension, hyperlipidemia, and CAD. In May 2022, he presented to the hospital with chest discomfort and had a positive stress test that revealed ejection fraction of 45% with inferior wall fixed defect. Cardiac cath at that time revealed 80% stenosis in the proximal large dominant RCA for which he received a 5.0 mm drug-eluting stent performed by Dr. Madrigal. This patient follows with Dr. Saez in the outpatient setting. He came into the hospital with a sharp pain in the chest that lasted about 5 to 8 seconds and the pain occurred spontaneously randomly. He also had a bump by his dog into his knee and that jolted him, he felt a little uncomfortable and came into the hospital. He is resting comfortably at the time of my evaluation. He has no chest pain. No recurrence of pain. Troponins are normal. EKG revealed left bundle which is his baseline. He is asymptomatic. Quality of pain seems quite atypical. He is ambulating without symptoms. PAST MEDICAL HISTORY: 1. CAD with PCI of RCA in May 2022. 2. Diabetes. 3. Hypertension. 4. Hyperlipidemia. MEDICATIONS: Medications at home include Jardiance 25 mg daily, metoprolol tartrate 25 mg b.i.d., Plavix 75 mg daily, aspirin 81 mg daily, Lipitor 40 mg daily, losartan/hydrochlorothiazide 100/25 one tablet daily. PHYSICAL EXAMINATION: VITAL SIGNS: Blood pressure is 130/70, pulse rate is 68 per minute. HEENT: Unremarkable. Fundus was not examined by me. NECK: Supple. No JVD. I do not hear a carotid bruit. There is no thyromegaly. HEART: Reveals S1, S2 heard normally. No rub, murmur or gallop. LUNGS: Clear. ABDOMEN: Soft, nontender. LOWER EXTREMITIES: Reveal normal pulses. No edema. CENTRAL NERVOUS SYSTEM: Normal. DIAGNOSTIC DATA: EKG revealed sinus mechanism, IVCD LBBB type with nonspecific ST-T changes. LABORATORY DATA: Reveals unremarkable troponins. IMPRESSION: 1. Atypical chest pain. 2. Coronary artery disease with prior stenting of RCA. 3. Hypertension. 4. Diabetes. 5. Hyperlipidemia. RECOMMENDATIONS: The patient's presentation is very atypical, it does not suggest angina. Given his presentation and normal troponins, I am recommending we will increase activity, and if he has no further symptoms, he can be discharged and will see Dr. Saez in 1 week and he can have a stress test as an outpatient. I discussed my thoughts in detail with the patient. Thank you very much for the consult. MAURI / MARIO ALBERTO: [id number] /
[2022-10-16] MEDS: METOPROLOL TARTRATE 25 MG TAB PO SCH (08:07)
[2022-10-16] MEDS ORDERED: CHOLECALCIFEROL 25 MCG (1000 IU) TABLET PO SCH (09:00)
[2022-10-16] MEDS ORDERED: FUROSEMIDE 40 MG TAB PO SCH (09:00)
[2022-10-16] MEDS ORDERED: MELOXICAM 7.5 MG TAB PO SCH (09:00)
[2022-10-16] MEDS ORDERED: LOSARTAN-HCTZ 50-12.5 MG 1 EACH TAB PO SCH (09:00)
[2022-10-16] MEDS ORDERED: ASPIRIN 81 MG PO SCH (09:00)
[2022-10-16] MEDS ORDERED: DAPAGLIFLOZIN PROPANEDIOL 10 MG TABLET PO SCH (09:00)
[2022-10-16] MEDS ORDERED: ASPIRIN 325 MG TAB PO SCH (09:00)
[2022-10-16] MEDS ORDERED: FLUTICASONE 50MCG/SPRAY NASAL 16GM EA NOSTRIL SCH (09:00)
[2022-10-16] MEDS ORDERED: CLOPIDOGREL 75 MG TAB PO SCH (09:00)
[2022-10-16] MEDS ORDERED: FENOFIBRATE 160 MG TAB PO SCH (09:00)
[2022-10-16 10:47] LABS: Basophils # (A) 0.04 X 10*3/uL (0.00-0.10); Basophils % (A) 0.9 %; Eosinophils # (A) 0.13 X 10*3/uL (0.04-0.35); Eosinophils % (A) 2.9 %; HCT 47.6 % (39.6-50.0); Immature Grans, Automated 0.2 %; Lymphocytes # (A) 1.55 X 10*3/uL (0.90-5.00); Lymphocytes % (A) 34.4 %; MCH 30.1 pg (27.0-32.0); MCHC 33.6 g/dL (32.0-37.0); MCV 89.6 fL (80.0-97.0); Mean Platelet Volume 10.2 fL (9.5-12.2); Monocytes # (A) 0.36 X 10*3/uL (0.20-1.00); NRBC Per 100 WBC 0 /100 WBCS (0.0-0.0); Neutrophils # (A) 2.41 X 10*3/uL (1.80-7.70); Neutrophils % (A) 53.6 %; Platelet Count 144 X 10*3/uL (140-440); RBC 5.31 X 10*6/uL (4.40-5.60); RDW 13.2 % (11.5-14.5)
[2022-10-16 14:57] LABS: BUN/Creat Ratio 13.79 Ratio (12.00-20.00); Blood Urea Nitrogen 17.1 mg/dL (9.0-27.0); Calcium 9.3 mg/dL (8.7-10.3); Carbon Dioxide 25.2 mmol/L (20.0-27.5); Chloride 103 mmol/L (96-109); Chol/HDL Ratio 4.41 Ratio; Glucose 189 mg/dL (70-110); LDL Cholesterol,Calculated 45.3 mg/dL (0.0-131.0); Non-African American GFR(CKD) 56.1 (60.0-200.0); Potassium 4.5 mmol/L (3.5-5.5); Sodium 140 mmol/L (135-145)
[2022-10-22] MEDS ORDERED: NON FORMULARY DRUG (Semaglutide [Ozempic] 0.25 MG/0.2 ML Each) SQ SCH (09:00)
== END 2022-10-16 10:46 | disposition home or self-care (01) ==
LOC: EC 13:00 → 6NMEDSUR 15:14 → 3SCARD 10-16 02:57
PROVIDERS: ADMIT Hospitalist; ATTEND Hospitalist
DX: R07.9 Chest pain, unspecified (principal); E11.40 Type 2 diabetes mellitus with diabetic neuropathy, unspecified; I25.10 Atherosclerotic heart disease of native coronary artery without angina pectoris; I10 Essential (primary) hypertension; E78.5 Hyperlipidemia, unspecified; K21.9 Gastro-esophageal reflux disease without esophagitis; M19.90 Unspecified osteoarthritis, unspecified site; G47.30 Sleep apnea, unspecified; G25.81 Restless legs syndrome; Z90.49 Acquired absence of other specified parts of digestive tract; Z98.890 Other specified postprocedural states; Z87.891 Personal history of nicotine dependence; Z79.4 Long term (current) use of insulin; Z79.02 Long term (current) use of antithrombotics/antiplatelets; Z79.82 Long term (current) use of aspirin; Z79.84 Long term (current) use of oral hypoglycemic drugs; Z79.899 Other long term (current) drug therapy
CPT/HCPCS: 99285; 36415; 93005; 85379; 83880; 80061; 80053; 80048; 82150; 83690; 83735; 84484; 85025 ×2; 85610; 85730; 83036; 71046; G0378 ×3

== ENCOUNTER → 2023-01-25 | Outpatient (CLI) | payer MEDICARE, BC, OTHER ==
[2023-01-25 13:42] LABS: Prothrombin Time 10.5 sec (9.0-12.0)
[2023-01-25 21:05] LABS: BUN/Creat Ratio 18.81 Ratio (12.00-20.00); Blood Urea Nitrogen 30.1 mg/dL (9.0-27.0); Calcium 9.7 mg/dL (8.7-10.3); Carbon Dioxide 28.4 mmol/L (21.6-31.8); Chloride 101 mmol/L (96-109); Glucose 129 mg/dL (70-110); Potassium 4.5 mmol/L (3.5-5.5); Sodium 141 mmol/L (135-145)
[2023-01-25 22:50] LABS: Basophils # (A) 0.05 X 10*3/uL (0.00-0.10); HCT 48.8 % (39.6-50.0); HGB 16.2 d/dL (12.0-15.0); Lymphocytes # (A) 1.71 X 10*3/uL (0.90-5.00); Lymphocytes % (A) 33.9 %; MCH 29.9 pg (27.0-32.0); MCHC 33.2 d/dL (32.0-37.0); MCV 90.2 FL (80.0-97.0); Mean Platelet Volume 10.9 FL (9.5-12.2); Monocytes # (A) 0.45 X 10*3/uL (0.20-1.00); Monocytes % (A) 8.9 %; NRBC Per 100 WBC 0 X 10*3/uL (0.00-0.01); Neutrophils # (A) 2.62 X 10*3/uL (1.80-7.70); Platelet Count 155 X 10*3/uL (140-440); RBC 5.41 X 10*6/uL (4.40-5.60); RDW 13.6 % (11.5-14.5); WBC 5.04 X 10*3/uL (4.50-10.00)
== END | disposition home or self-care (01) ==
LOC: LABPAT 11:55
PROVIDERS: ATTEND Orthopaedic Surgery
DX: Z01.812 Encounter for preprocedural laboratory examination (principal); M17.11 Unilateral primary osteoarthritis, right knee
CPT/HCPCS: 36415; 80048; 85025; 85610

== ENCOUNTER 2023-02-15 08:00 | Day surgery (SDC) | payer MEDICARE, BC, OTHER ==
[2023-02-09 12:06] VITALS: BMI 34.9
--- NOTE | 2023-02-14 13:48 | HP ---
HISTORY AND PHYSICAL DATE OF SURGERY: 02/15/2023 HISTORY OF PRESENT ILLNESS: Humphrey Sanchez is a 77-year-old patient, seen with symptomatic right knee osteoarthritis. After having treatment options discussed, the patient elected to proceed with right total knee arthroplasty. Consent obtained. Medical clearance was provided by Dr. House. PAST MEDICAL HISTORY: Hypertension, hyperlipidemia, insulin-dependent diabetes. PAST SURGICAL HISTORY: Cholecystectomy, carpal tunnel surgeries. DAILY MEDICATIONS: Aspirin, atorvastatin, glipizide, insulin, losartan, metformin, metoprolol, omeprazole. ALLERGIES: None. SOCIAL HISTORY: The patient denies tobacco use. PHYSICAL EVALUATION OF THE RIGHT KNEE: Range of motion is negative 2/3 to 110 degrees. Mild effusion. Tenderness in the medial joint line. Crepitus in the medial patellofemoral compartments with range of motion. Pain with patellofemoral compression. Ligaments appear stable. Distal neurovascular exam is intact. RADIOGRAPHS: Radiographs of the right knee reveal severe osteoarthritic changes. IMPRESSION: 1. Right knee osteoarthritis. 2. Insulin-dependent diabetes. 3. Hypertension. 4. Hyperlipidemia. PLAN: Right total knee arthroplasty. MMODL / IJN: [id number] /
[~2023-02-15 08:00] MED LIST changes: +ACETAMINOPHEN TAB 500 MG TAB PO PRN; -ALPRAZolam 0.25 MG TAB PO PRN; -ALPRAZolam 0.5 MG TAB PO PRN; -ASPIRIN 325 MG TAB PO STA; -ATORVASTATIN 80 MG TAB PO STA; +DEXAMETHASONE SOD PHOSPHATE 4 MG/ML 1 ML VIAL IV ONE; -HEPARIN SODIUM,PORCINE 10,000 UNIT in SODIUM CHLORIDE 0.9% 1,000 ML IRRIGATION PRN; -HEPARIN SODIUM,PORCINE 2,500 UNIT in SODIUM CHLORIDE 0.9% 250 ML IRRIGATION PRN; +HYDROmorphone 0.5 MG/0.5 ML SYRINGE IVP PRN; +MELOXICAM 7.5 MG TAB PO PRN; -NITROGLYCERIN SL TABS 0.4 MG TAB SUBLINGUAL PRN; +ONDANSETRON 4 MG/2 ML VIAL IVP ONE; -SODIUM CHLORIDE 0.9% 1,000 ML in EMPTY BAG 1 BAG IV ONE; +TRANEXAMIC 1,000 MG/100ML-NACL 1,000 MG in SALINE 1 100ML.BAG IVPB PRN
[2023-02-15] MEDS: LACTATED RINGERS 1,000 ML IV SCH (08:35)
[2023-02-15 08:42] LABS: Glucose,Whole Blood 120 mg/dL (70-110)
[2023-02-15 09:02] LABS: African American GFR (CKD) 61 (>60 ml/min/1.73 sqM); Anion Gap 9 mmol/L; Blood Urea Nitrogen 31 mg/dL (9-20); Carbon Dioxide 29 mmol/L (22-30); Chloride 103 mmol/L (98-107); Glucose 123 mg/dL (74-99); Non-African American GFR(CKD) 53 (>60 ml/min/1.73 sqM); Sodium 141 mmol/L (137-145)
[2023-02-15] MEDS ORDERED: MIDAZOLAM 2 MG/2 ML VIAL IVP ONE (09:11)
[2023-02-15] MEDS ORDERED: fentaNYL (PF) 50 MCG/ML 2 ML AMP IVP ONE (09:12)
--- NOTE | 2023-02-15 09:36 | P.ANPRN ---
Procedure Note - Anesthesia - Nerve Block Performed Right Adductor Canal Infusion Time Out Performed: Yes Date of Procedure: 02/15/23 Procedure Start Time: :10 Procedure Stop Time: :18 Location of Patient: PreOp Indication: Acute Post-Operative Pain, Requested by Surgeon Specifically requested for management of pain by DrClovis: Desmond Alfaro Sedation Type: Sedate with meaningful contact maintained Preparation: Sterile Prep, Sterile Dressing Position: Supine Catheter: Indwelling Needle Types: Pajunk Needle Gauge: 18 Ultrasound used to visualize needle placement: Yes Ultrasound used to observe medication spread: Yes Injectate: 0.5% Ropivacaine (see comment for volume) (15 ml + 15 ml NS) Blood Aspirated: No Pain Paresthesia on Injection Noted: No Resistance on Injection: Normal Image Stored and Saved: Yes Events: Uneventful and Well Tolerated
[2023-02-15] MEDS ORDERED: ROPIVACAINE 1,100 MG, SODIUM CHLORIDE 0.9% 500 ML 330 ML, EMPTY PAIN BALL 1 EACH MISCELLANE PRN ×2 (09:38)
--- NOTE | 2023-02-15 09:38 | P.ANPRN ---
Procedure Note - Anesthesia - Nerve Block Performed Right iPack Single Time Out Performed: Yes Date of Procedure: 02/15/23 Procedure Start Time: : Procedure Stop Time: : Location of Patient: PreOp Indication: Acute Post-Operative Pain, Requested by Surgeon Specifically requested for management of pain by DrClovis: Desmond Alfaro Sedation Type: Sedate with meaningful contact maintained Preparation: Sterile Prep Position: Left Lateral Needle Types: Pajunk Needle Gauge: 21 Ultrasound used to visualize needle placement: Yes Ultrasound used to observe medication spread: Yes Injectate: 0.5% Ropivacaine (see comment for volume) (15 ml + 5 ml NS + 4 mg dexamethasone) Blood Aspirated: No Pain Paresthesia on Injection Noted: No Resistance on Injection: Normal Image Stored and Saved: Yes Events: Uneventful and Well Tolerated
[2023-02-15] MEDS ORDERED: LIDOCAINE 2% INJ 20 MG/ML (2 ML VIAL) ONE (10:03)
[2023-02-15] MEDS ORDERED: fentaNYL (PF) 50 MCG/ML 2 ML AMP ONE (10:03)
[2023-02-15] MEDS ORDERED: TRANEXAMIC 1,000 MG/100ML-NACL PREMIX BAG ONE (10:03)
[2023-02-15] MEDS ORDERED: GLYCOPYRROLATE 0.2 MG/ML 2 ML VIAL ONE (10:03)
[2023-02-15] MEDS ORDERED: SODIUM CHLORIDE 0.9% (PF) 10 ML VIAL ONE (10:03)
[2023-02-15] MEDS ORDERED: HYDROmorphone (PF) 1 MG/ML ONE (10:03)
[2023-02-15] MEDS ORDERED: PROPOFOL 10 MG/ML 20 ML VIAL IV ONE (10:03)
[2023-02-15] MEDS ORDERED: ROPIVACAINE 5 MG/ML 30 ML VIAL ONE (10:03)
[2023-02-15] MEDS ORDERED: SUCCINYLCHOLINE CHLORIDE 200 MG/10 ML VIAL IV ONE (10:03)
[2023-02-15] MEDS ORDERED: DEXAMETHASONE SOD PHOSPHATE 4 MG/ML 1 ML VIAL ONE (10:03)
[2023-02-15] MEDS ORDERED: ceFAZolin 1,000 MG in SODIUM CHLORIDE 0.9% 1,000 ML IRRIGATION ONE (10:32)
[2023-02-15] MEDS ORDERED: LACTATED RINGERS 1,000 ML IV ONE (11:03)
[2023-02-15] MEDS ORDERED: NALOXONE 0.4 MG/ML 1 ML VIAL IV PRN (11:53)
[2023-02-15] MEDS ORDERED: ONDANSETRON 4 MG/2 ML VIAL IVP PRN (11:53)
[2023-02-15] MEDS ORDERED: HYDROcodone/APAP 7.5-325MG 1 EACH TAB PO PRN (11:53)
[2023-02-15] MEDS ORDERED: HYDROmorphone 0.5 MG/0.5 ML SYRINGE IVP PRN ×2 (11:53)
--- NOTE | 2023-02-15 11:53 | P.OP ---
Date of Procedure: 02/15/23 Preoperative Diagnosis: Right knee osteoarthritis Postoperative Diagnosis: Right knee osteoarthritis Procedure(s) Performed: Right total knee arthroplasty Implants: 1. Depuy attune size 7 right cruciate retaining cemented femur 2. Depuy attune size 7 fixed-bearing cemented tibial baseplate 3. Depuy attune size 7 fixed-bearing cruciate retaining 12 mm polyethylene tibial insert 4. Depuy attune 41 mm all polyethylene cemented patella Anesthesia: GETA, regional (Adductor canal catheter, Ipack block) Surgeon: Desmond Alfaro Supervisor Special Education #1: Tyree Terry Estimated Blood Loss (ml): 50 Pathology: none sent Condition: stable Disposition: PACU Indications for Procedure: 77-year-old patient seen with symptomatic right knee osteoarthritis. After treatment options were discussed, he elected to proceed with total knee ar throplasty. Operative Findings: See description of procedure Description of Procedure: Patient was taken to the operative suite after having an adductor canal catheter placed by the department of anesthesia. Patient underwent a general anesthetic by the department of anesthesia. Patient was given preoperative IV intake antibiotics and TXA. A well-padded tourniquet was placed about the right lower extremity. The lower extremity was then prepped and draped in the normal sterile orthopedic fashion. The extremity was elevated, a tourniquet was insufflated to 300. A standard anterior incision was made sharply through skin. Dissection was taken down through the subcutaneous soft tissues down to the extensor mechanism. A medial arthrotomy was performed, patella was everted and knee was flexed. There was advanced osteoarthritis noted. I introduced my distal intramedullary femoral drill. I then introduced the distal femoral cutting jig. Bernardino BURR secured the cutting jig with 2 pins. I held retractors in position while Bernardino BURR performed the distal femoral resection through the guide area we now removed her distal femoral cutting guide. We now placed our 4-in-1 femoral cutting block and positioned and it was secured with 2 pins by Bernardino BURR while I held the block in position. The distal femoral finishing was now completed. A proximal tibial cutting guide was positioned. I held the guide in the appropriate position with both hands well Bernardino BURR inserted stabilizing pins into the guide. Proximal tibial cut was made. We now placed a trial femoral component into position, along with an appropriate size tibial tray and insert. We now took the knee through range of motion and had full extension good flexion and good overall soft tissue balance noted. The patella was everted and stabilized with 2 towel clips held by Bernardino BURR while I performed a flush with patellar quad tendon utilizing a fresh sawblade. We templated the patella, appropriate drill holes were made. An appropriate trial patella was positioned, knee was taken through full range of motion with the patella tracking very nicely. The trial patella was removed. Drill holes were made through the femoral component. All trial components were removed after marking off the appropriate rotation of the tibia. Retractors were now positioned along the proximal tibia. An appropriate keel punch was made with the appropriate size tibial guide by myself on Bernardino BURR assisted by holding retractors. At this point appropriate size implants were chosen and opened. The joint was irrigated copiously with pulse lavage mechanical irrigation. The wound was irrigated with pulse lavage mechanical irrigation. We mixed antibiotic methylmethacrylate. We placed the knee into flexion. We placed multiple retractors assisted by Bernardino BURR to expose the proximal tibia. Once the methyl methacrylate was ready, the tibial component was cemented into place removing any excess methylmethacrylate form by both myself and Bernardino BURR. The femoral component was cemented into place removing the removing any excess methylmethacrylate performed by both myself and Bernardino BURR. We then inserted the appropriate size polyethylene tibial insert. We made sure that it was locked into position. We took the knee into full extension, and then back in a flexion making sure we had removed any excess methylmethacrylate. The patellar component was then cemented down and secured with clamp. Excess methylmethacrylate removed. We kept the knee in full extension, patellar clamp in position until methylmethacrylate had hardened. Once it had hardened the patellar clamp was removed. The knee was taken through full range of motion. The patella tracked nicely. There was good soft tissue balancing. The tourniquet was now released. Additional hemostasis was achieved via electrocautery. A second gram of TXA was given. The wound again was irrigated with pulse lavage mechanical irrigation. The extensor mechanism was repaired with Ethibond suture. We checked the repair with range of motion and it was stable. The subcutaneous soft tissues were repaired with Vicryl in layers. The skin was approximated with pernio/Dermabond. Sterile dressings were applied followed by loose web roll and Keith bandage. The patient was transferred to a bed, and taken to recovery in stable and satisfactory condition. Bernardino BURR assisted with this complex procedure.
[2023-02-15] MEDS ORDERED: SODIUM CHLORIDE 0.9% 1,000 ML IV SCH (12:00)
[2023-02-15] MEDS: HYDROmorphone 0.5 MG/0.5 ML SYRINGE IVP PRN ×2 (12:42→20:26)
--- NOTE | 2023-02-15 12:44 | XR ---
EXAMINATION TYPE: XR knee limited RT DATE OF EXAM: 02/15/2023 12:37 PM INDICATION: Patient age:Male; 77 years old; Reason for study: Evaluation for Postop abnormality and alignment; PHH. COMPARISON: None. TECHNIQUE: The Right knee(s) was examined in Frontal, lateral projections. FINDINGS: Status post total knee arthroplasty changes with hardware in appropriate alignment and in tact. No evidence of fracture. Subcutaneous lucencies and lucencies within the joint consistent with surgical changes. IMPRESSION: Status post total knee arthroplasty changes with hardware intact and appropriate alignment. No fractu res identified.
[2023-02-15 13:39] LABS: Glucose,Whole Blood 195 mg/dL (70-110)
[2023-02-15] MEDS ORDERED: DEXTROSE 50% SYRINGE 50 ML IVP PRN ×2 (15:06)
[2023-02-15] MEDS ORDERED: GABAPENTIN 300 MG CAP PO PRN (15:07)
[2023-02-15] MEDS: HYDROcodone/APAP 5-325MG 1 EACH TAB PO PRN (16:33)
[2023-02-15 16:43] LABS: Glucose,Whole Blood 172 mg/dL (70-110)
[2023-02-15] MEDS: INSULIN ASPART (NovoLOG) 100 UNIT/ML VIAL SQ SCH ×2 (16:43→20:28)
[2023-02-15] MEDS ORDERED: INSULIN ASPART (NovoLOG) 100 UNIT/ML VIAL SQ SCH (17:30)
[2023-02-15 20:21] LABS: Glucose,Whole Blood 222 mg/dL (70-110)
[2023-02-15] MEDS: ENOXAPARIN 30 MG/0.3 ML SYRINGE SQ SCH (20:27)
[2023-02-15] MEDS: FAMOTIDINE 20 MG TAB PO SCH (20:29)
[2023-02-15] MEDS ORDERED: ATORVASTATIN 40 MG TAB PO SCH (21:00)
[2023-02-15] MEDS ORDERED: FLUTICASONE 50MCG/SPRAY NASAL 16GM EA NOSTRIL SCH (21:00)
[2023-02-15] MEDS ORDERED: PRAMIPEXOLE 0.5 MG TAB PO SCH (21:00)
[2023-02-15] MEDS ORDERED: INSULIN DETEMIR (LEVEMIR) 100 UNIT/ML SYR SQ SCH (21:00)
[2023-02-15] MEDS ORDERED: SENNOSIDES-DOCUSATE SODIUM 1 EACH TAB PO SCH (21:00)
[2023-02-15] MEDS ORDERED: MONTELUKAST 10 MG TAB PO SCH (21:00)
[2023-02-16] MEDS: HYDROcodone/APAP 5-325MG 1 EACH TAB PO PRN ×2 (00:23→05:52)
[2023-02-16 01:48] VITALS: RESP 18
[2023-02-16] MEDS: HYDROmorphone 0.5 MG/0.5 ML SYRINGE IVP PRN (02:45)
--- NOTE | 2023-02-16 04:51 | P.CONS ---
History of Present Illness - Reason for Consult Consult date: 02/15/23 Medical management, postop right knee arthroplasty - History of Present Illness This is a 77-year-old male who was admitted under orthopedic services underwent right total knee arthroplasty and is postop day 0. Patient follows with Dr. House in the outpatient setting with a past medical history of diabetes mellitus, GERD, hyperlipidemia, hypertension, osteoarthritis, sleep apnea, and former smoker. Patient denies excessive alcohol use or illicit drug use. Patient is currently maintained on 2-3 L via nasal cannula and sleepy on exam did receive anesthesia. Patient is a diabetic recommend Accu-Cheks before meals and at bedtime and close monitoring. Recommend follow-up labs in a.m. including BMP and CBC. at bedside reports patient did go to presurgical clearance with Dr. House. Will follow-up and evaluate patient in the a.m. patient is to undergo physical therapy evaluation tomorrow. Review Of Systems: Constitutional: No fever, no chills, no night sweats. No weight change. No weakness, fatigue or lethargy. No daytime sleepiness. EENT: No headache. No blurred vision or double vision, no loss of vision. No loss of Hearing, no ringing in the ears, no dizziness. No nasal drainage or congestion. No epistaxis. No sore throat. Lungs: No shortness of breath, cough, no sputum production. No wheezing. Cardiovascular: No chest pain, no lower extremity edema. No palpitations. No paroxysmal nocturnal dyspnea. No orthopnea. No lightheadedness or dizziness. No syncopal episodes. Abdominal: No abdominal pain. No nausea, vomiting. No diarrhea. No constipation. No bloody or tarry stools.. No loss of appetite. Genitourinary: No dysuria, increased frequency, urgency. No urinary retention. Musculoskeletal: No myalgias. No muscle weakness, no gait dysfunction, no frequent falls. No back pain. No neck pain. Reports right knee discomfort Integumentary: No wounds, no lesions. No rash or pruritus. No unusual bruising. No change in hair or nails. Neurologic: No aphasia. No facial droop. No change in mentation. No head injury. No headache. No paralysis. No paresthesia. Psychiatric: No depression. No anxiety. No mood swings. Endocrine: No abnormal blood sugars. No weight change. No excessive sweating or thirst. No cold intolerance. PHYSICAL EXAMINATION: GENERAL: The patient is lethargic although arousable, alert and oriented , Well developed, well nourished. Obese HEENT: Pupils are round and equally reacting to light. EOMI. no scleral icterus. No conjunctival pallor. Normocephalic, atraumatic. No pharyngeal erythema. No thyromegaly. Mucous membranes are dry CARDIOVASCULAR: S1 and S2 muffled PULMONARY: diminished breath sounds bilaterally with no wheezing or rhonchi noted. ABDOMEN: soft. Nontender on exam. obese. non-distended, normoactive bowel sounds. No palpable organomegaly. MUSCULOSKELETAL: No joint swelling or deformity. EXTREMITIES: No cyanosis, clubbing, or pedal edema. Right knee surgical dressing is dry and intact pain pump noted NEUROLOGICAL: Gross neurological examination did not reveal any focal deficits. Diffuse weakness SKIN: No rashes. Assessment: Status post right total knee arthroplasty Diabetes mellitus, type II, insulin-dependent GERD Hyperlipidemia Hypertension history Osteoarthritis Sleep apnea with a CPAP Former smoker Obesity with a BMI of 35.1 GI prophylaxis DVT prophylaxis Full code Plan: Recommend to continue with current medications and management per orthopedic services. Patient is fresh postop continues to be lethargic although arousable maintained on 3 L O2 and recommend weaning FiO2 as tolerated Recommend incentive spirometer and encourage the patient to use at least 10 times every hour while awake Recommend Accu-Cheks before meals and at bedtime and continued sliding scale and will resume all medications Awaiting PT/OT therapy evaluation in the a.m. Continue with pain medication and DVT prophylaxis per orthopedics Recommend follow-up labs in a.m. including CBC and BMP We will continue to follow with orthopedics during hospitalization. Thank you kindly for this consultation. The impression and plan of care has been dictated by Lauren Farrell, nurse practitioner as directed. Dr. Jacque MD I have performed a history and examination and MDM of this patient, discussed the same with the dictator, and agree with the dictator's assessment and plan as written ,documented as a scribe. Based on total visit time, I have performed more than 50% of the visit. Any additional findings or plans will be noted. Past Medical History Past Medical History: Diabetes Mellitus, GERD/Reflux, Hyperlipidemia, Hypertens ion, Osteoarthritis (OA), Sleep Apnea/CPAP/BIPAP Additional Past Medical History / Comment(s): leg cramps/restless legs, neuropathy, frequent swelling lower legs-wears compression stockings frequently, supposed to use CPAP History of Any Multi-Drug Resistant Organisms: None Reported Past Surgical History: Cholecystectomy, Heart Catheterization With Stent, Orthopedic Surgery, Tonsillectomy Additional Past Surgical History / Comment(s): pain procedures, BILATERAL CARPAL TUNNEL RELEASE, KNEE SURG. Past Anesthesia/Blood Transfusion Reactions: No Reported Reaction Additional Past Anesthesia/Blood Transfusion Reaction / Comm: occasionally slow to wake up Date of Last Stent Placement:: 06/2022 Past Psychological History: No Psychological Hx Reported Smoking Status: Former smoker Past Alcohol Use History: Rare Additional Past Alcohol Use History / Comment(s): STARTED AT AGE 17 AND QUIT AT AGE 43 SMOKED 1-3PPD Past Drug Use History: None Reported - Past Family History Father Additional Family Medical History / Comment(s): MVA Mother Family Medical History: No Reported History Brother(s) Family Medical History: Cancer Additional Family Medical History / Comment(s): lung cancer Medications and Allergies Home Medications Medication Instructions Recorded Confirmed Type Cholecalciferol [Vitamin D3 (25 25 mcg PO DAILY 02/05/22 02/15/23 History Mcg = 1000 Iu)] Fenofibrate [Lofibra] 160 mg PO DAILY 02/05/22 02/15/23 History Fluticasone Nasal [place] [Flonase 2 spray EA NOSTRIL DAILY 02/05/22 02/15/23 History Nasal [place]] Insulin Aspart [NovoLOG Flexpen] See Protocol SQ TID-W/MEALS PRN 02/05/22 02/15/23 History Insulin Detemir [Levemir Flextouch 42 units SQ HS 02/05/22 02/15/23 History Pen] Losartan/Hydrochlorothiazide 1 tab PO DAILY 02/05/22 02/15/23 History [Losartan-Hctz 100-25 mg Tab] Montelukast Sodium [Singulair] 10 mg PO HS 02/05/22 02/15/23 History Omeprazole [PriLOSEC] 40 mg PO DAILY 02/05/22 02/15/23 History Pramipexole [Mirapex] 0.5 mg PO HS 02/05/22 02/15/23 History Clopidogrel [Plavix] 75 mg PO DAILY 06/09/22 02/15/23 History Aspirin EC [Ecotrin Low Dose] 81 mg PO DAILY 10/15/22 02/15/23 History Empagliflozin [Jardiance] 25 mg PO DAILY 10/15/22 02/15/23 History Atorvastatin [Lipitor] 40 mg PO HS 02/09/23 02/15/23 History Fluticasone Nasal [place] [Flonase 1 spray EA NOSTRIL HS 02/09/23 02/15/23 History Nasal [place]] Furosemide [Lasix] 40 mg PO DAILY 02/09/23 02/15/23 History Gabapentin 600 mg PO DIRECTED PRN 02/09/23 02/15/23 History Metoprolol Tartrate 25 mg PO DAILY 02/09/23 02/15/23 History Naproxen [Naprosyn] 500 mg PO BID 02/09/23 02/15/23 History Allergies Allergy/AdvReac Type Severity Reaction Status Date / Time No Known Allergies Allergy Verified 02/09/23 11:53 Physical Exam Vitals: Vital Signs Temp Pulse Pulse Resp BP BP Pulse Ox 02/15/23 15:05 74 16 02/15/23 13:26 74 16 138/71 93 L 02/15/23 13:00 75 16 152/82 94 L 02/15/23 12:45 77 16 142/71 98 02/15/23 12:30 75 16 144/75 97 02/15/23 12:11 85 16 144/65 98 02/15/23 09:40 50 L 16 121/60 96 02/15/23 09:21 47 L 14 130/62 96 02/15/23 09:16 50 L 14 130/62 95 02/15/23 08:25 97.2 F L 51 L 16 130/64 95 Intake and Output 02/15/23 02/15/23 02/15/23 06:59 14:59 22:59 Intake Total 1751 Output Total 50 Balance 1701 Intake: IV 1751 Output: Estimated Blood Loss 50 Other: Voiding Method Urinal Weight 104.6 kg Results CBC & Chem 7: 02/15/23 08:40 Labs: Abnormal Lab Results - Last 24 Hours (Table) 02/15/23 02/15/23 02/15/23 Range/Units 08:38 08:40 13:37 BUN 31 H (9-20) mg/dL Creatinine 1.31 H (0.66-1.25) mg/dL Glucose 123 H (74-99) mg/dL POC Glucose (mg/dL) 120 H 195 H (70-110) mg/dL
[2023-02-16 05:31] LABS: Glucose,Whole Blood 195 mg/dL (70-110)
[2023-02-16] MEDS: LACTATED RINGERS 1,000 ML IV SCH (06:22)
[2023-02-16] MEDS: INSULIN ASPART (NovoLOG) 100 UNIT/ML VIAL SQ SCH (06:24)
--- NOTE | 2023-02-16 07:50 | P.PN ---
Progress Note - Text Progress Note Date: 02/16/23 Postoperative day # 1 status post total knee arthroplasty, on adductor canal perineural catheter placed for postoperative analgesia. Ropivacaine 0.2% 8 mL per hour through ON-Q pump continuous infusion. Pain is well controlled. On visual analog scale 4/10 Patient is taking PRN oral pain medications. Catheter site: Looks Ok. There is no erythema or tenderness. Continue with the current pain management plan and will follow.
[2023-02-16 08:24] LABS: BUN/Creat Ratio 21.58 Ratio (12.00-20.00); Blood Urea Nitrogen 25.9 mg/dL (9.0-27.0); Calcium 8.6 mg/dL (8.7-10.3); Carbon Dioxide 26.2 mmol/L (21.6-31.8); Chloride 103 mmol/L (96-109); Glucose 206 mg/dL (70-110); Magnesium 1.9 mg/dL (1.5-2.4); Potassium 4.9 mmol/L (3.5-5.5); Sodium 139 mmol/L (135-145)
[2023-02-16 08:31] LABS: Basophils # (A) 0.03 X 10*3/uL (0.00-0.10); Basophils % (A) 0.4 %; Eosinophils # (A) 0.01 X 10*3/uL (0.04-0.35); Eosinophils % (A) 0.1 %; HCT 41.4 % (39.6-50.0); HGB 13.9 d/dL (13.0-17.0); Lymphocytes # (A) 1.27 X 10*3/uL (0.90-5.00); Lymphocytes % (A) 16.2 %; MCH 30.1 pg (27.0-32.0); MCHC 33.6 d/dL (32.0-37.0); MCV 89.6 FL (80.0-97.0); Mean Platelet Volume 11.1 FL (9.5-12.2); Monocytes # (A) 0.61 X 10*3/uL (0.20-1.00); Monocytes % (A) 7.8 %; NRBC Per 100 WBC 0 X 10*3/uL (0.00-0.01); Neutrophils # (A) 5.91 X 10*3/uL (1.80-7.70); Neutrophils % (A) 75.2 %; Platelet Count 146 X 10*3/uL (140-440); RBC 4.62 X 10*6/uL (4.40-5.60); RDW 13.6 % (11.5-14.5); WBC 7.85 X 10*3/uL (4.50-10.00)
[2023-02-16 08:33] VITALS: BP 111/55; TEMP 97.9
[2023-02-16 08:34] VITALS: PULSE 54
[2023-02-16] MEDS: ENOXAPARIN 30 MG/0.3 ML SYRINGE SQ SCH (08:43)
[2023-02-16] MEDS: FAMOTIDINE 20 MG TAB PO SCH (08:43)
[2023-02-16] MEDS ORDERED: ASPIRIN 81 MG PO SCH (09:00)
[2023-02-16] MEDS ORDERED: METOPROLOL TARTRATE 25 MG TAB PO SCH (09:00)
[2023-02-16] MEDS ORDERED: DAPAGLIFLOZIN PROPANEDIOL 10 MG TABLET PO SCH (09:00)
[2023-02-16] MEDS ORDERED: FLUTICASONE 50MCG/SPRAY NASAL 16GM EA NOSTRIL SCH (09:00)
[2023-02-16] MEDS ORDERED: FENOFIBRATE 160 MG TAB PO SCH (09:00)
[2023-02-16] MEDS ORDERED: CLOPIDOGREL 75 MG TAB PO SCH (09:00)
[2023-02-16] MEDS ORDERED: CHOLECALCIFEROL 25 MCG (1000 IU) TABLET PO SCH (09:00)
[2023-02-16 11:43] LABS: Glucose,Whole Blood 220 mg/dL (70-110)
[2023-02-16] MEDS ORDERED: MULTIVITAMINS, THERA 1 EACH TAB PO SCH (12:00)
--- NOTE | 2023-02-16 12:44 | P.PN ---
Subjective Progress Note Date: 02/16/23 Principal diagnosis: Status post right total knee arthroplasty Patient evaluated at bedside, his is present, he was resting in his hospital chair. Patient has been doing very well, he did well with physical therapy. He is tolerating his regular diet, he is urinating with no difficulty. He denies headaches, lightheadedness, chest pain or shortness of breath Objective - Vital Signs Vital signs: Vital Signs Temp 97.9 F 02/16/23 07:25 Pulse 84 02/16/23 07:25 Resp 18 02/16/23 07:25 BP 111/55 02/16/23 07:25 Pulse Ox 94 L 02/16/23 07:25 FiO2 Intake & Output 02/15/23 02/16/23 02/16/23 18:59 06:59 18:59 Intake Total 2231 Output Total 50 950 Balance 2181 -950 Weight 104.6 kg Intake: IV 1751 Oral 480 Output: Urine 950 Estimated Blood Loss 50 Other: Voiding Method Urinal Urinal Urinal # Voids 1 1 - Exam Right lower extremity: Incision is clean, dry, and intact. The foam dressing is in good condition. There is minimal soft tissue swelling and ecchymosis surrounding the medial and lateral aspects of the incision. Calf is soft, no tenderness with palpation. Plantar flexion, dorsiflexion, EHL, FHL are intact. Sensory exam to light touch throughout the extremity is intact, dorsal pedis pulses 2+. - Labs CBC & Chem 7: 02/16/23 05:31 02/16/23 05:31 Labs: Abnormal Lab Results - Last 24 Hours (Table) 02/15/23 02/15/23 02/15/23 Range/Units 13:37 16:42 20:19 Eosinophils # (0.04-0.35) X 10*3/uL BUN/Creatinine Ratio (12.00-20.00) Ratio Glucose (70-110) mg/dL POC Glucose (mg/dL) 195 H 172 H 222 H (70-110) mg/dL Hemoglobin A1c (<=6.0) % Calcium (8.7-10.3) mg/dL 02/16/23 02/16/23 02/16/23 Range/Units 05:26 05:31 05:31 Eosinophils # 0.01 L (0.04-0.35) X 10*3/uL BUN/Creatinine Ratio (12.00-20.00) Ratio Glucose (70-110) mg/dL POC Glucose (mg/dL) 195 H (70-110) mg/dL Hemoglobin A1c 6.9 H (<=6.0) % Calcium (8.7-10.3) mg/dL 02/16/23 02/16/23 Range/Units 05:31 11:42 Eosinophils # (0.04-0.35) X 10*3/uL BUN/Creatinine Ratio 21.58 H (12.00-20.00) Ratio Glucose 206 H (70-110) mg/dL POC Glucose (mg/dL) 220 H (70-110) mg/dL Hemoglobin A1c (<=6.0) % Calcium 8.6 L (8.7-10.3) mg/dL Assessment and Plan Assessment: Postoperative day #1 status post right total knee arthroplasty Plan: Pain control, plan for discharge with [place] 7.5 mg/325 mg. He can also resume gabapentin after discharge DVT prophylaxis, did receive Lovenox during hospital stay, plan to restart Plavix on 02/17/2023 Wound care instructions were discussed, this to include use of the On-Q pain catheter, shower instructions and bandage instructions Icing and elevating techniques were discussed Home physical therapy/nursing after discharge Medical recommendations appreciated Discharge planning: Patient stable for discharge home today Time with Patient: Less than 30
--- NOTE | 2023-02-16 12:49 | P.DS ---
Providers Date of admission: 02/15/2023 Expected date of discharge: 02/16/23 Attending physician: Desmond Alfaro Consults: 02/15/23 14:25 Consult Physician Routine Consulting Provider: Pat Zepeda Consult Reason/Comments: Medical Management Do you want consulting provider notified?: Yes Primary care physician: Jennifer House Hospital Course: Date of admission: 02/15/2023 Date of discharge: 02/16/2023 Admission diagnosis: Status post right total knee arthroplasty Discharge diagnosis: Same Attending physician: Dr. Alfaro Surgical procedures: Right total knee arthroplasty Brief history: Patient is a 77-year-old male with a history of progressive primary right knee osteoarthritis. At this point patient has failed conservative treatment measures and has opted to proceed with a elective right total knee arthroplasty. Hospital course: Details of patient's surgery can be found in operative report. Patient tolerated the procedure well and was subsequently transported to orthopedic floor. Patient's orthopeidc and medical care was provided daily. Patient had daily laboratory tests performed for evaluation of overall blood counts. Patient had daily physical therapy to include strengthening range of motion as well as education with walker ambulation. Patient was treated with Lovenox for their postoperative DVT prophylaxis during their inpatient stay. Patient was noted to have a relatively uneventful postoperative course. Patient reported satisfactory pain control with oral pain medications by postoperative day 0. Patient showed satisfactory progress with physical therapy. Patient moved steadily through the program and had no difficulty meeting the goals by postoperative day 1. Given patient's otherwise satisfactory course and having met physical therapy goals, plan is to discharge patient home on postoperative day 1. Discharge condition/disposition: Patient will be discharged home in stable condition. Discharge medications: Instructions are given on resumption of patient's normal daily medications per primary care recommendation, in addition patient will be prescribed [place] 7.5 mg/325 mg, Senna S. Discharge instructions: 1. Wound care and infection precautions, keep incision dry and covered while showering no lotions, creams, moisturizers. No soaking, tubs, pools, hottubs. Do not scrub over the incision. 2. Weight-bear as tolerated with walker / cane until follow-up. 3. Ice and elevate when necessary. Do not exceed 20 minutes per hour with ice pack. 4. Utilize compression sleeve until seen at first follow up appointment. 5. Visiting nursing care. 6. Home physical therapy including home CPM. 7. Pain meds and anticoagulants per prescription. 8. Pain medication has potential to cause constipation. Increase oral fluid and fiber intake. Contact primary care provider if you have not had a bowel movement within 48 hours after discharge 9. No anti-inflammatory medication until discussed at first post operative vis it, this including Motrin, Aleve, Mobic, Diclofenac 10. Follow up in office at 2 weeks postop with Bernardino Terry PA-C/Rah Cabezas 11. Follow up with your primary care doctor 7-10 days after discharge. 12. Contact [facility] with any questions, . Procedures: Right total knee arthroplasty Patient Condition at Discharge: Good Plan - Discharge Summary Discharge Rx Participant: Yes New Discharge Prescriptions: New HYDROcodone/APAP 7.5-325MG [[place] 7.5] 1 each PO Q4HR PRN #42 tab PRN Reason: Pain Sennosides/Docusate Sodium [Senna-S 8.6-50 mg Tablet] 2 each PO DAILY PRN #30 tablet PRN Reason: Constipation No Action Pramipexole [Mirapex] 0.5 mg PO HS Fenofibrate [Lofibra] 160 mg PO DAILY Montelukast Sodium [Singulair] 10 mg PO HS Fluticasone Nasal [place] [Flonase Nasal [place]] 2 spray EA NOSTRIL DAILY Insulin Detemir [Levemir Flextouch Pen] 42 units SQ HS Insulin Aspart [NovoLOG Flexpen] See Protocol SQ TID-W/MEALS PRN PRN Reason: cbg>150 Empagliflozin [Jardiance] 25 mg PO DAILY Atorvastatin [Lipitor] 40 mg PO HS Cholecalciferol [Vitamin D3 (25 Mcg = 1000 Iu)] 25 mcg PO DAILY Omeprazole [PriLOSEC] 40 mg PO DAILY Losartan/Hydrochlorothiazide [Losartan-Hctz 100-25 mg Tab] 1 tab PO DAILY Clopidogrel [Plavix] 75 mg PO DAILY Aspirin EC [Ecotrin Low Dose] 81 mg PO DAILY Metoprolol Tartrate 25 mg PO DAILY Gabapentin 600 mg PO DIRECTED PRN PRN Reason: Pain Fluticasone Nasal [place] [Flonase Nasal [place]] 1 spray EA NOSTRIL HS Furosemide [Lasix] 40 mg PO DAILY Naproxen [Naprosyn] 500 mg PO BID Discharge Medication List Cholecalciferol [Vitamin D3 (25 Mcg = 1000 Iu)] 25 mcg PO DAILY 02/05/22 [History] Fenofibrate [Lofibra] 160 mg PO DAILY 02/05/22 [History] Fluticasone Nasal [place] [Flonase Nasal [place]] 2 spray EA NOSTRIL DAILY 02/05/22 [History] Insulin Aspart [NovoLOG Flexpen] See Protocol SQ TID-W/MEALS PRN 02/05/22 [History] Insulin Detemir [Levemir Flextouch Pen] 42 units SQ HS 02/05/22 [History] Losartan/Hydrochlorothiazide [Losartan-Hctz 100-25 mg Tab] 1 tab PO DAILY 02/05/22 [History] Montelukast Sodium [Singulair] 10 mg PO HS 02/05/22 [History] Omeprazole [PriLOSEC] 40 mg PO DAILY 02/05/22 [History] Pramipexole [Mirapex] 0.5 mg PO HS 02/05/22 [History] Clopidogrel [Plavix] 75 mg PO DAILY 06/09/22 [History] Aspirin EC [Ecotrin Low Dose] 81 mg PO DAILY 10/15/22 [History] Empagliflozin [Jardiance] 25 mg PO DAILY 10/15/22 [History] Atorvastatin [Lipitor] 40 mg PO HS 02/09/23 [History] Fluticasone Nasal [place] [Flonase Nasal [place]] 1 spray EA NOSTRIL HS 02/09/23 [History] Furosemide [Lasix] 40 mg PO DAILY 02/09/23 [History] Gabapentin 600 mg PO DIRECTED PRN 02/09/23 [History] Metoprolol Tartrate 25 mg PO DAILY 02/09/23 [History] Naproxen [Naprosyn] 500 mg PO BID 02/09/23 [History] HYDROcodone/APAP 7.5-325MG [[place] 7.5] 1 each PO Q4HR PRN #42 tab 02/16/23 [Rx] Sennosides/Docusate Sodium [Senna-S 8.6-50 mg Tablet] 2 each PO DAILY PRN #30 tablet 02/16/23 [Rx] Follow up Appointment(s)/Referral(s): Tyree Terry, PAC [PHYSICIAN TRACK FITTER] - 2 Weeks [facility] Visiting Nurse, [NON-STAFF] - As Needed Activity/Diet/Wound Care/Special Instructions: Orthopedic Discharge Instructions: 1. Wound care and infection precautions, keep incision dry and covered while showering, no lotions, creams, moisturizers. No soaking, pools, hot tubs. Do not scrub over incision. 2. Weight-bear as tolerated with walker / cane until follow-up. 3. Ice and elevate when necessary. Do not exceed 20 minutes per hour with ice pack. 4. Utilize compression sleeve until seen at first follow up appointment. 5. Pain meds and anticoagulants per prescription. 6. Pain medication has potential to cause constipation. Increase oral fluid and fiber intake. Contact primary care provider if you have not had a bowel movement within 48 hours after discharge. 7. No anti-inflammatory medication until discussed at first post operative visit, this including Motrin, Aleve, Mobic, Diclofenac. 8. Follow up in office at 2 weeks postop with Bernardino Terry PA-C/Rah Romo PA-C 9. Follow up with your primary care doctor 7-10 days after discharge. 10. Contact [facility] with any questions, . Wound care instructions: 1. Okay to remove dressing as 02/22/2023 2. Okay to shower directly over incision after removal of dressing Discharge Disposition: HOME WITH HOME HEALTH SERVICES
--- NOTE | 2023-02-17 05:59 | P.PN ---
Subjective Progress Note Date: 02/16/23 - Reason for Consult Consult date: 02/15/23 Medical management, postop right knee arthroplasty - History of Present Illness This is a 77-year-old male who was admitted under orthopedic services underwent right total knee arthroplasty and is postop day 0. Patient follows with Dr. House in the outpatient setting with a past medical history of diabetes mellitus, GERD, hyperlipidemia, hypertension, osteoarthritis, sleep apnea, and former smoker. Patient denies excessive alcohol use or illicit drug use. Patient is currently maintained on 2-3 L via nasal cannula and sleepy on exam did receive anesthesia. Patient is a diabetic recommend Accu-Cheks before meals and at bedtime and close monitoring. Recommend follow-up labs in a.m. including BMP and CBC. at bedside reports patient did go to presurgical clearance with Dr. House. Will follow-up and evaluate patient in the a.m. patient is to undergo physical therapy evaluation tomorrow. 02/16/2023 Patient is seen and evaluated in follow-up today currently sitting up in the chair and was able to work with physical therapy and did well. Patient with significant pain continues with the pain pump of the knee as well as oral medications. Plan is for possible discharge later today his pain is better controlled. Patient is afebrile denies chest pain or shortness of breath. Patient has incentive spirometer at the bedside using frequently. Patient has support at home and will plan is for home on discharge. Blood pressures were normal recommend continuing to hold blood pressure medication and encourage the patient to evaluate blood pressure and resume appropriate. Recommend Accu-Cheks before meals and at bedtime and sliding scale for now. Patient is medically stable for discharge today. Review of systems: Constitutional: No reports of fatigue, fever, or chills Cardiovascular: No reports of chest pain or palpitations Respiratory: No reports of shortness of breath or cough GI: No reports of nausea, vomiting, or diarrhea : No reports of dysuria or retention Neurovascular: reports of generalized weakness and some right knee pain All medications have been reviewed PHYSICAL EXAMINATION: GENERAL: The patient is awake, sitting up in the chair , alert and oriented 3, Well developed, well nourished. Obese HEENT: Pupils are round and equally reacting to light. EOMI. no scleral icterus. No conjunctival pallor. Normocephalic, atraumatic. No pharyngeal erythema. No thyromegaly. Mucous membranes are dry CARDIOVASCULAR: S1 and S2 muffled PULMONARY: diminished breath sounds bilaterally with no wheezing or rhonchi noted. ABDOMEN: soft. Nontender on exam. obese. non-distended, normoactive bowel sounds. No palpable organomegaly. MUSCULOSKELETAL: No joint swelling or deformity. EXTREMITIES: No cyanosis, clubbing, or pedal edema. Right knee surgical dressing is dry and intact pain pump noted NEUROLOGICAL: Gross neurological examination did not reveal any focal deficits. Diffuse weakness SKIN: No rashes. Assessment: Status post right total knee arthroplasty Diabetes mellitus, type II, insulin-dependent GERD Hyperlipidemia Hypertension history Osteoarthritis Sleep apnea with a CPAP Former smoker Obesity with a BMI of 35.1 GI prophylaxis DVT prophylaxis Full code Plan: Recommend to continue with current medications and management per orthopedic services. Patient is sitting up in the chair and has just worked with physical therapy reports doing well although continues with moderate to severe pain of the right knee. Pain management per orthopedics Recommend incentive spirometer and encourage the patient to use at least 10 times every hour while awake Recommend Accu-Cheks before meals and at bedtime and continued sliding scale and will resume all medications Patient has support at home and plan is for returning home at discharge Continue with pain medication and DVT prophylaxis per orthopedics Patient is medically stable for discharge today We will continue to follow with orthopedics during hospitalization. Thank you kindly for this consultation. The impression and plan of care has been dictated by Lauren Farrell, nurse practitioner as directed. Dr. Jacque MD I have performed a history and examination and MDM of this patient, discussed the same with the dictator, and agree with the dictator's assessment and plan as written ,documented as a scribe. Based on total visit time, I have performed more than 50% of the visit. Any additional findings or plans will be noted. Objective - Vital Signs Vital signs: Vital Signs Temp 97.9 F 02/16/23 07:25 Pulse 84 02/16/23 07:25 Resp 18 02/16/23 07:25 BP 111/55 02/16/23 07:25 Pulse Ox 94 L 02/16/23 07:25 FiO2 Intake & Output 02/15/23 02/16/23 02/16/23 18:59 06:59 18:59 Intake Total 2231 Output Total 50 950 Balance 2181 -950 Weight 104.6 kg Intake: IV 1751 Oral 480 Output: Urine 950 Estimated Blood Loss 50 Other: Voiding Method Urinal Urinal Urinal # Voids 1 1 - Labs CBC & Chem 7: 02/16/23 05:31 02/16/23 05:31 Labs: Abnormal Lab Results - Last 24 Hours (Table) 02/15/23 02/15/23 02/15/23 Range/Units 13:37 16:42 20:19 Eosinophils # (0.04-0.35) X 10*3/uL BUN/Creatinine Ratio (12.00-20.00) Ratio Glucose (70-110) mg/dL POC Glucose (mg/dL) 195 H 172 H 222 H (70-110) mg/dL Hemoglobin A1c (<=6.0) % Calcium (8.7-10.3) mg/dL 02/16/23 02/16/23 02/16/23 Range/Units 05:26 05:31 05:31 Eosinophils # 0.01 L (0.04-0.35) X 10*3/uL BUN/Creatinine Ratio (12.00-20.00) Ratio Glucose (70-110) mg/dL POC Glucose (mg/dL) 195 H (70-110) mg/dL Hemoglobin A1c 6.9 H (<=6.0) % Calcium (8.7-10.3) mg/dL 02/16/23 Range/Units 05:31 Eosinophils # (0.04-0.35) X 10*3/uL BUN/Creatinine Ratio 21.58 H (12.00-20.00) Ratio Glucose 206 H (70-110) mg/dL POC Glucose (mg/dL) (70-110) mg/dL Hemoglobin A1c (<=6.0) % Calcium 8.6 L (8.7-10.3) mg/dL
== END 2023-02-16 14:18 | disposition home health service (06) ==
LOC: OR 08:00 → 4SSUR 13:49 → OR 02-16 14:18
PROVIDERS: ATTEND Orthopaedic Surgery
DX: M17.11 Unilateral primary osteoarthritis, right knee (principal); G89.18 Other acute postprocedural pain; I10 Essential (primary) hypertension; E78.5 Hyperlipidemia, unspecified; E11.9 Type 2 diabetes mellitus without complications; Z90.49 Acquired absence of other specified parts of digestive tract; Z79.899 Other long term (current) drug therapy
CPT/HCPCS: 97161; 64999; 64448; 80048 ×2; 83735; 85025; 83036; 73560; 27447; C1776; C1713 ×2; C1751; J2250; J0330; J1100; J0690 ×3; J2405; J3010; J1650 ×2; J1170 ×3; J2795; J2704; J2001

== ENCOUNTER → 2025-02-22 | Outpatient (CLI) | payer MEDICARE, BC, OTHER ==
[2025-02-22 15:37] LABS: Anion Gap 12.30 mmol/L (4.00-12.00); BUN/Creat Ratio 18.89 Ratio (12.00-20.00); Blood Urea Nitrogen 34.0 mg/dL (9.0-27.0); Calcium 8.9 mg/dL (8.7-10.3); Carbon Dioxide 25.7 mmol/L (21.6-31.8); Chloride 102 mmol/L (96-109); Glucose 142 mg/dL (70-110); NT-Pro-B-Type Natriuretic Pept 785 pg/mL (0-450); Potassium 4.4 mmol/L (3.5-5.5); Sodium 140 mmol/L (135-145)
== END | disposition home or self-care (01) ==
LOC: LABWHC1 10:01
PROVIDERS: ATTEND Internal Medicine Cardiovascular Disease
DX: I50.22 Chronic systolic (congestive) heart failure (principal)
CPT/HCPCS: 36415; 80048; 83880